=== PATIENT | female | born 1980 | race Caucasian/White ===

== ENCOUNTER 2016-04-12 16:58 | Emergency (ER) | payer OTHER ==
[2016-04-12 17:20] VITALS: TEMP 98; BMI 32.9
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
[2016-04-12] MEDS ORDERED: ONDANSETRON *ODT* 4 MG TABLET SL ONE (18:13)
[2016-04-12] MEDS ORDERED: KETOROLAC TROMETHAMINE 60 MG/2 ML VIAL IM ONE (18:13)
[2016-04-12] MEDS ORDERED: ONDANSETRON *ODT* 4 MG TABLET ONE (18:22)
[2016-04-12] MEDS ORDERED: KETOROLAC TROMETHAMINE 60 MG/2 ML VIAL ONE (18:22)
[2016-04-12] MEDS ORDERED: OXYCODONE/APAP 5/325MG COMBO TABLET PO ONE (18:50)
[2016-04-12 18:56] VITALS: BP 148/78; PULSE 88
== END 2016-04-12 18:56 | disposition home or self-care (01) ==
LOC: JER 16:58
PROC: 3E0233Z Introduction of Anti-inflammatory into Muscle, Percutaneous Approach (ICD-10-PCS; principal; 2016-04-12)
PROC: 2W3MXYZ Immobilization of Left Lower Extremity using Other Device (ICD-10-PCS; 2016-04-12)
DX: F07.81 Postconcussional syndrome (principal); G44.309 Post-traumatic headache, unspecified, not intractable; S83.8X2A Sprain of other specified parts of left knee, initial encounter; Y04.2XXA Assault by strike against or bumped into by another person, initial encounter; Y93.89 Activity, other specified; Y92.89 Other specified places as the place of occurrence of the external cause; Y07.9 Unspecified perpetrator of maltreatment and neglect
CPT/HCPCS: 99282-25

== ENCOUNTER 2017-03-08 13:43 | Emergency (ER) | payer OTHER ==
[2017-03-08 14:28] VITALS: BP 123/57; PULSE 87; TEMP 98.6; BMI 34.6
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
[2017-03-08 18:31] LABS: HEMATOCRIT 34.7 % (32.4-45.2); HEMOGLOBIN 9.9 GM/dL (10.7-15.3); MCH 33.2 pg (25.7-33.7); MCHC 28.5 g/dl (32.0-36.0); MEAN CELL VOLUME 116.8 fl (80-96); MEAN PLT VOLUME 9.7 fl (7.5-11.1); PLATELET COUNT 559 K/MM3 (134-434); RBC 2.97 M/mm3 (3.60-5.2); RDW 17.2 % (11.6-15.6); WHITE BLOOD COUNT 25.4 K/mm3 (4.0-10.0)
[2017-03-08 19:17] LABS: ADD RBC MORPHOLOGY YES
[2017-03-08] MEDS ORDERED: SODIUM CHLORIDE 1,000 ML IV STA (19:37)
[2017-03-08] MEDS ORDERED: KETOROLAC TROMETHAMINE 30 MG/1 ML VIAL IVPUSH ONE (19:38)
[2017-03-08 19:41] LABS: BASO % 0.4 % (0-2.0); EOS % 0.7 % (0-4.5); HEMATOCRIT 43.4 % (32.4-45.2); HEMOGLOBIN 14.5 GM/dL (10.7-15.3); LYMPH % 14.1 % (8-40); MCH 28.8 pg (25.7-33.7); MCHC 33.3 g/dl (32.0-36.0); MEAN CELL VOLUME 86.3 fl (80-96); MEAN PLT VOLUME 7.1 fl (7.5-11.1); MONO % 6.7 % (3.8-10.2); NEUT % 78.1 % (42.8-82.8); PLATELET COUNT 364 K/MM3 (134-434); RBC 5.03 M/mm3 (3.60-5.2); RDW 14.3 % (11.6-15.6); WHITE BLOOD COUNT 8.8 K/mm3 (4.0-10.0)
[2017-03-08] MEDS ORDERED: KETOROLAC TROMETHAMINE 30 MG/1 ML VIAL ONE (19:44)
[2017-03-08 19:59] LABS: ALK PHOS 73 U/L (45-117); ANION GAP 7 (8-16); BILIRUBIN,TOTAL 0.9 mg/dL (0.2-1.0); BLOOD UREA NITROGEN 8 mg/dL (7-18); CALCIUM 8.1 mg/dL (8.5-10.1); CHLORIDE 105 mmol/L (98-107); CO2 24 mmol/L (21-32); CREATININE 0.5 mg/dL (0.55-1.02); GLUCOSE,RANDOM 94 mg/dL (74-106); POTASSIUM 3.9 mmol/L (3.5-5.1); SGOT/AST 20 U/L (15-37); SGPT/ALT 45 U/L (12-78); SODIUM 136 mmol/L (136-145); TOT PROT 7.4 g/dl (6.4-8.2)
[2017-03-08 20:43] LABS: ANISOCYTOSIS 2+; MACROCYTOSIS 0; PLATELET ESTIMATE INCREASED
[2017-03-08 21:37] LABS: URINE APPEARANCE CLEAR; URINE BILIRUBIN NEGATIVE (NEGATIVE); URINE BLOOD NEGATIVE (NEGATIVE); URINE COLOR LTYELLOW; URINE GLUCOSE (UA) NEGATIVE (NEGATIVE); URINE KETONE TRACE (NEGATIVE); URINE LEUK ESTERASE NEGATIVE (NEGATIVE); URINE NITRITE NEGATIVE (NEGATIVE); URINE PROTEIN NEGATIVE (NEGATIVE); URINE UROBILINOGEN NEGATIVE mg/dL (0.2-1.0)
== END 2017-03-08 23:53 | disposition home or self-care (01) ==
LOC: JER 13:43
PROC: 3E0337Z Introduction of Electrolytic and Water Balance Substance into Peripheral Vein, Percutaneous Approach (ICD-10-PCS; principal; 2017-03-08)
PROC: 3E0333Z Introduction of Anti-inflammatory into Peripheral Vein, Percutaneous Approach (ICD-10-PCS; 2017-03-08)
DX: N20.0 Calculus of kidney (principal); Z87.442 Personal history of urinary calculi; Z87.891 Personal history of nicotine dependence
CPT/HCPCS: 36415; 74176-TC; 80053; 81003; 84703; 85025; 99284-25

== ENCOUNTER 2017-05-31 05:02 | Inpatient (IN) | payer OTHER ==
[2017-05-28 09:52] VITALS: BMI 31.4
[2017-05-31] MEDS ORDERED: DEXAMETHASONE SOD PHOSPHATE/PF 10 MG/ML SDV ONE (07:15)
[2017-05-31] MEDS ORDERED: ROPIVACAINE HCL 0.5% 30ML VIAL ONE (07:15)
[2017-05-31] MEDS ORDERED: MIDAZOLAM HCL 2 MG/2 ML SINGLE DOSE VIAL ONE ×3 (07:20→08:10)
[2017-05-31] MEDS ORDERED: VASOPRESSIN 20 UNITS/ML VIAL IV ONE (07:27)
[2017-05-31] MEDS ORDERED: fentaNYL CITRATE 250 MCG/5 ML VIAL ONE (08:11)
[2017-05-31] MEDS ORDERED: HYDROmorphone HCL CARPU-JECT 2 MG/1 ML DISP.SYRIN IVPB PRN ×2 (08:13→09:19)
[2017-05-31] MEDS ORDERED: IBUPROFEN 800 MG/8 ML IJ IVPB PRN (08:13)
[2017-05-31] MEDS ORDERED: PROPOFOL 20 ML ONE (08:15)
[2017-05-31] MEDS ORDERED: ROCURONIUM BROMIDE 50 MG/5 ML VIAL ONE ×2 (08:15→09:01)
--- NOTE | 2017-05-31 08:19 | HP ---
History & Physical Update - History History: No Change - Physical Physical: No Change - Assessment Assessment: No Change - Plan Plan: No Change (No change from on 05/26/17)
[2017-05-31] MEDS ORDERED: ceFAZolin SODIUM 1 GM VIAL IVPB ONE (08:20)
[2017-05-31] MEDS ORDERED: GLYCOPYRROLATE 0.2 MG/1 ML VIAL ONE (09:23)
[2017-05-31] MEDS ORDERED: NEOSTIGMINE METHYLSULFATE 0.5 MG/ML - 10 ML MDV ONE (09:23)
[2017-05-31] MEDS ORDERED: KETOROLAC TROMETHAMINE 30 MG/1 ML VIAL ONE (09:24)
[2017-05-31] MEDS ORDERED: LIDOCAINE HCL 2% JELLY (5 ML/TUBE) ONE (09:24)
[2017-05-31] MEDS ORDERED: LIDOCAINE HCL/PF 2% SDV 5ML VIAL ONE (09:24)
[2017-05-31] MEDS ORDERED: DEXAMETHASONE SOD PHOSPHATE 4 MG/1 ML VIAL ONE (09:24)
[2017-05-31] MEDS ORDERED: ONDANSETRON 4 MG/2 ML VIAL IVPUSH PRN ×2 (09:58)
[2017-05-31] MEDS ORDERED: PROMETHAZINE HCL 25 MG/1 ML VIAL IVPB PRN (09:58)
[2017-05-31] MEDS ORDERED: DEXAMETHASONE SOD PHOSPHATE 4 MG/1 ML VIAL IVPUSH PRN (09:58)
[2017-05-31] MEDS: HYDROmorphone *PCA* 10MG/50ML DISP.SYRIN PCA SCH ×2 (11:00→21:23)
--- NOTE | 2017-05-31 11:47 | OP ---
DATE OF OPERATION: 05/31/2017 PREOPERATIVE DIAGNOSIS: Leiomyomatous uterus, history of recurrent abortions, menorrhagia. OPERATION: Abdominal myomectomy. POSTOPERATIVE DIAGNOSIS: Leiomyomatous uterus, history of recurrent abortions, menorrhagia. SURGEON: Kaelyn Hutton MD AUTO HAULER: ANGIE Paredes ANESTHESIA: General. ANESTHESIOLOGIST: Dr. Chen Briceño MD FINDINGS: Three fibroids removed. Large one about 5-6 cm in size. The other two 1 cm and 3 cm. DESCRIPTION OF PROCEDURE: The patient was taken to the operating room and placed in supine position, prepped and draped in the usual sterile fashion. A time-out was performed in accordance with hospital regulations. Pfannenstiel skin incision was made with a scalpel. Cautery was then used to open layers of the abdominal wall to the level of the fascia. The fascia was cut in the midline. Cautery was then used to open the fascia in smiling fashion. Marcus was then used to bluntly and sharply dissect the rectus muscle off the fascia. Muscles split in the midline. Peritoneal cavity was then entered and carried upward and downward. Bowel was packed out of the operative field. The uterus was exteriorized. Tourniquet was placed in the space of the broad ligament. A large 5- to 6-cm pedunculated myoma was palpated in the fundus as well as a 3-cm myoma in the posterior of the uterus and another 1-cm fibroid anteriorly. Pitressin was infiltrated into location of the fibroids. Cautery was then used to open the posterior fibroid in a transverse manner. Myoma was then ennucleated out using sharp and blunt technique. Incisions was closed in layers. The muscle was closed in continuous and locking 0 Vicryl suture and imbricating stitch on the serosa of the posterior aspect of the uterus. Attention was then drawn to the fundus where the large 5- to 6-cm myoma was palpated. Cautery was then used to make a transverse incision from left to right side on the fundus. Cautery was then used to go through the layers to the level of the myoma. The myoma was then enucleated out using blunt and sharp technique. Endometrium was not entered and was seen bulging. Myoma was sent to Pathology. Palpation revealed another anterior 1-cm myoma, which was removed with cautery in blunt and sharp technique and enucleated out. The fundal incision was then closed in layers continuous and locking with 0 Vicryl suture. A 2-0 V-Lock suture was then used to close the serosa of the uterus. Hemostasis was established. EBL was 50 mL. All bleeding was found to be hemostatic. Interceed was then used on the uterus, and the uterus was then interiorized after tourniquet had been removed. Peritoneum was then closed after abdominal plate done and all count was correct. The fascia was closed in 2 parts continuous using 0 Vicryl suture. Subcutaneous was closed in interrupted 2-0 Vicryl, and the skin was then closed using 3-0 Vicryl in subcuticular fashion. The wound was washed and dressed. The patient tolerated the procedure well and taken to the recovery room in stable condition. EBL 50 mL. Pad count correct. Rocio DOS [id number]
[2017-05-31] MEDS: CEFAZOLIN 1 GM/D5W 1 GM/50 ML BAG IVPB SCH ×2 (13:49→17:18)
[2017-05-31] MEDS: LACTATED RINGERS SOLUTION 1,000 ML IV SCH (16:37)
[2017-05-31 18:43] LABS: HEMATOCRIT 41.5 % (32.4-45.2); HEMOGLOBIN 13.8 GM/dL (10.7-15.3); MCH 29.1 pg (25.7-33.7); MCHC 33.3 g/dl (32.0-36.0); MEAN CELL VOLUME 87.2 fl (80-96); MEAN PLT VOLUME 7.7 fl (7.5-11.1); PLATELET COUNT 386 K/MM3 (134-434); RBC 4.76 M/mm3 (3.60-5.2); RDW 14.8 % (11.6-15.6); WHITE BLOOD COUNT 16.5 K/mm3 (4.0-10.0)
[2017-05-31 21:43] LABS: PLATELET ESTIMATE ADEQUATE
[2017-06-01] MEDS: SIMETHICONE 80 MG TAB.CHEW (FP) PO PRN ×3 (01:35→16:01)
[2017-06-01] MEDS: LACTATED RINGERS SOLUTION 1,000 ML IV SCH (01:41)
[2017-06-01] MEDS ORDERED: CEFAZOLIN 1 GM/D5W 1 GM/50 ML BAG IVPB SCH (02:00)
[2017-06-01] MEDS ORDERED: oxyCODONE HCL 5 MG TABLET PO PRN ×2 (08:13)
--- NOTE | 2017-06-01 08:21 | PN ---
Progress Note (short form) - Note Progress Note: Post op day#1.S/P Myomectomy under GA with bilateral TAP block uneventful.Patient stable and c/o pain score of 6-7/10 on movement.So will continue MANAGER DENTAL today and also spoke to RN to give patient Caldolor.Will f/u tomorrow.
[2017-06-01 08:35] LABS: BASO % 0.7 % (0-2.0); HEMATOCRIT 36.9 % (32.4-45.2); HEMOGLOBIN 12.4 GM/dL (10.7-15.3); LYMPH % 11.6 % (8-40); MCH 29.6 pg (25.7-33.7); MCHC 33.7 g/dl (32.0-36.0); MEAN CELL VOLUME 87.9 fl (80-96); MEAN PLT VOLUME 7.8 fl (7.5-11.1); MONO % 9.5 % (3.8-10.2); NEUT % 78.2 % (42.8-82.8); PLATELET COUNT 361 K/MM3 (134-434); RDW 14.9 % (11.6-15.6)
[2017-06-01 09:05] LABS: ANION GAP 7 (8-16); BLOOD UREA NITROGEN 6 mg/dL (7-18); CALCIUM 8.6 mg/dL (8.5-10.1); CHLORIDE 106 mmol/L (98-107); CO2 25 mmol/L (21-32); CREATININE 0.4 mg/dL (0.55-1.02); GLUCOSE,RANDOM 109 mg/dL (74-106); POTASSIUM 4.4 mmol/L (3.5-5.1); SODIUM 138 mmol/L (136-145)
[2017-06-01] MEDS: ENOXAPARIN NA (PORCINE) 40 MG/0.4 ML DISP.SYRIN SQ SCH (10:30)
[2017-06-01] MEDS ORDERED: HYDROmorphone HCL 2 MG TABLET PO PRN (12:44)
--- NOTE | 2017-06-01 12:50 | PN ---
Progress Note, Physician Chief Complaint: Pt c/o pain 9/10, improving slightly with Dilaudid SPRIGGER, states oxycodone not helping with pain. Slight VB. Unable to sleep overnight. c/o abdominal pain/ incisional pain. has not yet voided. +flatus - Current Medication List Current Medications: Active Medications Dexamethasone Sodium Phosphate (Decadron Injection -) 4 mg IVPUSH ONCE PRN PRN Reason: NAUSEA AND/OR VOMITING Diphenhydramine HCl (Benadryl Injection -) 12.5 mg IVPUSH ONCE PRN PRN Reason: FOR ITCHING Enoxaparin Sodium (Lovenox -) 40 mg SQ DAILY [facility] Last Admin: 06/01/17 10:30 Dose: 40 mg Fentanyl (Sublimaze Injection -) 50 mcg IVPUSH [id number] PRN PRN Reason: PAIN-PACU ORDER X 4 DOSES ONLY Last Admin: 05/31/17 10:15 Dose: 50 mcg Hydromorphone HCl (Dilaudid -) 4 mg PO Q4H PRN PRN Reason: PAIN LEVEL 6-10 Hydromorphone HCl (Dilaudid -) 2 mg PO Q4HWA PRN PRN Reason: PAIN LEVEL 1-5 Lactated Ringer's (Lactated Ringers Solution) 1,000 mls @ 125 mls/hr IV ASDIR [facility] Last Admin: 06/01/17 01:41 Dose: 125 mls/hr Ibuprofen (Caldolor Injection -) 800 mg IVPB Q8H PRN PRN Reason: FEVER Last Admin: 06/01/17 01:39 Dose: 800 mg Ondansetron HCl (Zofran Injection) 4 mg IVPUSH Q4H PRN PRN Reason: NAUSEA AND/OR VOMITING Promethazine HCl (Phenergan Injection -) 12.5 mg IVPB Q6H PRN PRN Reason: NAUSEA AND/OR VOMITING Simethicone (Mylicon -) 80 mg PO Q4H PRN PRN Reason: gas Last Admin: 06/01/17 11:47 Dose: 80 mg - Objective Vital Signs: Vital Signs Temperature 98.9 F 06/01/17 10:00 Pulse Rate 74 06/01/17 10:00 Respiratory Rate 20 06/01/17 10:00 Blood Pressure 110/58 06/01/17 10:00 O2 Sat by Pulse Oximetry (%) 99 05/31/17 21:46 Constitutional: Yes: Well Nourished Respiratory: Yes: Regular Gastrointestinal: Yes: Soft, Tenderness (appropriate post surgical tenderness) Genitourinary: Yes: Vaginal Bleeding (scant). No: Brown Present Extremities: Yes: WNL Edema: No Wound/Incision: Yes: Dressing Dry and Intact Neurological: Yes: Alert, Oriented Psychiatric: Yes: Oriented Labs: CBC, BMP 06/01/17 07:31 06/01/17 07:31 Problem List - Problems (1) S/P myomectomy Code(s): Z98.890 - OTHER SPECIFIED POSTPROCEDURAL STATES (2) History of recurrent miscarriages Code(s): N96 - RECURRENT LOSS Assessment/Plan 36 y/o POD#1 s/p abdominal myomectomy AFVSS +flatus, no void yet, await void today regular diet PO pain meds (will switch to Dilaudid from oxycodone per pt request) OOB routine post op care
[2017-06-01] MEDS ORDERED: PCA PUMP KEY 1 EACH EACH ONE ×2 (13:46→13:49)
--- NOTE | 2017-06-01 15:35 | PATH ---
Surgical Pathology Report Patient Name: ILENE ROBLEDO [facility]. Rec. 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 Specimen(s) Received FIBROIDS Clinical History Leiomyomatous uterus Final Diagnosis UTERUS, ABDOMINAL MYOMECTOMY: LEIOMYOMATA, 81 GRAM AGGREGATE WEIGHT. Electronically Signed Carlos Alberto Mabry M.D. Gross Description Received in formalin labeled "fibroids," is an 81 g aggregate of 3 hoyt, rubbery nodules ranging from 1.6-6.5 cm in greatest dimension, consistent with fibroids. Sectioning reveals hoyt, firm to rubbery parenchyma with whorled architecture. No areas of hemorrhage or necrosis are identified. Regulatory Affairs Associate sections are submitted in 5 cassettes as follows: 1-smallest fibroid; 2-medium fibroid; 3-5-largest fibroid. /05/31/2017 saudi/05/31/2017
[2017-06-01] MEDS: HYDROmorphone *PCA* 10MG/50ML DISP.SYRIN PCA SCH (15:50)
[2017-06-01] MEDS ORDERED: HYDROmorphone HCL 2 MG TABLET ONE ×2 (15:53→21:56)
[2017-06-01] MEDS ORDERED: KETOROLAC TROMETHAMINE 30 MG/1 ML VIAL IM PRN (19:02)
[2017-06-02] MEDS ORDERED: HYDROmorphone HCL 2 MG TABLET ONE ×2 (02:22→06:42)
[2017-06-02] MEDS ORDERED: IBUPROFEN 600 MG TABLET (FP) PO PRN (08:32)
[2017-06-02 08:33] VITALS: BP 121/70; PULSE 78; TEMP 98.1
--- NOTE | 2017-06-02 08:36 | PN ---
Progress Note (short form) - Note Progress Note: Pain follow up Patient is taking orals. No N/V A/P Discontinue the HYDROMETEOROLOGIST. patient can take oral meds. Katlin Chan MD.
[2017-06-02] MEDS: ENOXAPARIN NA (PORCINE) 40 MG/0.4 ML DISP.SYRIN SQ SCH (09:27)
[2017-06-02] MEDS ORDERED: HYDROmorphone HCL 2 MG TABLET PO PRN ×2 (10:39→10:43)
== END 2017-06-02 14:40 | disposition home or self-care (01) | DRG 743 ==
LOC: JSAMEDAYSX 05:02 → EDSTATUS 08:00 → J3W 13:28
PROVIDERS: ADMIT Obstetrics & Gynecology; ATTEND Obstetrics & Gynecology
PROC: 0UB90ZZ Excision of Uterus, Open Approach (ICD-10-PCS; principal; 2017-05-31 08:00)
DX: D25.9 Leiomyoma of uterus, unspecified (principal); N92.0 Excessive and frequent menstruation with regular cycle
CPT/HCPCS: 36415; 80048; 84703; 85025; 88305-TC; 94760

== ENCOUNTER 2017-11-09 13:23 | Emergency (ER) | payer OTHER ==
[2017-11-09 13:36] VITALS: BP 122/80; PULSE 84; TEMP 98; BMI 31.6
--- NOTE | 2017-11-09 15:07 | PDOC ---
History of Present Illness - General Chief Complaint: Injury Stated Complaint: FALL, INJURY HIP AND KNEE Time Seen by Provider: 11/09/17 13:59 - History of Present Illness Initial Comments: 37-year-old female without comorbidities presents for evaluation of left knee pain and left-sided hip pain after a fall today. She had a prior left knee ACL reconstruction in the past. 11/09/17 15:03 Past History - Past Medical History Allergies/Adverse Reactions: Allergies Allergy/AdvReac Type Severity Reaction Status Date / Time chlorhexidine Allergy Intermediate Hives Verified 11/09/17 13:36 Home Medications: Ambulatory Orders Cyclobenzaprine HCl [Flexeril 10 mg] 10 mg PO HS PRN #10 tablet 11/09/17 Ibuprofen [Motrin -] 600 mg PO TID #30 tablet 11/09/17 Anemia: No Asthma: No Cancer: No Cardiac Disorders: No CVA: No COPD: No CHF: No Dementia: No Diabetes: No Dialysis: No GI Disorders: Yes (h/o acid reflux) Disorders: Yes (h/o kidney stones) HTN: No Hypercholesterolemia: No Kidney Stones: Yes (hx of rt kidney stent) Liver Disease: No Seizures: No Thyroid Disease: No - Surgical History Abdominal Surgery: Yes Appendectomy: No Cardiac Surgery: No Cholecystectomy: Yes (2007) Lung Surgery: No Neurologic Surgery: No Orthopedic Surgery: Yes (acl repair left knee) - Reproductive History Spontaneous : 0 - Immunization History Td Vaccination: Yes Immunization Up to Date: Yes - Suicide/Smoking/Psychosocial Hx Smoking Status: Yes Smoking History: Former smoker Years of Tobacco Use: 0 Have you smoked in the past 12 months: No Number of Cigarettes Smoked Daily: 1 If you are a former smoker, when did you quit?: 2weeks Cigars Per Day: 0 Information on smoking cessation initiated: No 'Breaking Loose' booklet given: 03/15/15 Hx Alcohol Use: Yes (occas) Drug/Substance Use Hx: No Substance Use Type: Alcohol Hx Substance Use Treatment: No Review of Systems - Review of Systems Musculoskeletal: Yes: See HPI, Back Pain, Joint Pain All Other Systems: Reviewed and Negative *Physical Exam - Vital Signs Last Vital Signs Temp Pulse Resp BP Pulse Ox 98 F 84 18 122/80 98 11/09/17 13:32 11/09/17 13:32 11/09/17 13:32 11/09/17 13:32 11/09/17 13:32 - Physical Exam Comments: Left knee skin color and temperature are normal. There is no swelling or appreciable intra-articular effusion. Range of motion is full with some discomfort at terminal flexion. She does have a soft Lockman's test I do not appreciate an endpoint. Her knee is stable to varus and valgus stress and posterior drawer. She has no joint line tenderness. Thigh and calf are soft and nontender she has no gross sensorimotor deficits. She's neurovascular intact. Full hip range of motion and negative straight leg raise test. Lumbar spine skin color and temperature are normal. Range of motion is full with mild discomfort at the left sacroiliac joint. She has no midline tenderness. Tenderness about the left paraspinal musculature. 5 out of 5 strength in bilateral lower extremities without any gross sensorimotor deficits. She's neurovascular intact. 11/09/17 15:05 ED Treatment Course - ADDITIONAL ORDERS Additional order review: Laboratory Results 11/09/17 14:04 Urine HCG, Qual Negative - RADIOLOGY Radiology Studies Ordered: Category Date Time Status KNEE 3 POS-LEFT [RAD] Stat Radiology 11/09/17 14:27 Taken SPINE-LUMBAR SACRAL [RAD] Stat Radiology 11/09/17 14:27 Taken Medical Decision Making - Medical Decision Making Knee immobilizer and crutches weight-bear as tolerated. Follow-up with orthopedic surgery for further evaluation and treatment options. I will send her back to her operating surgeon. 11/09/17 15:07 *DC/Admit/Observation/Transfer Diagnosis at time of Disposition: Knee sprain, Lumbar strain - Discharge Dispostion Disposition: HOME Condition at time of disposition: Stable Decision to Admit order: No - Referrals Referrals: Obed Martin MD [Primary Care Provider] - Obed Parra MD [Staff Physician] - - Patient Instructions Printed Discharge Instructions: Knee Sprain, DI for Knee Sprain, Low Back Pain , DI for Low Back Pain Additional Instructions: Please take the anti-inflammatory 3 times a day with food. Discontinue the medication of bothers her stomach. The muscle relaxer I prescribed he will make you sleepy. Its one tablet before bedtime. Return to the emergency room should symptoms worsen or go unresolved. He may weight-bear as tolerated with use of crutches and a knee immobilizer. Follow-up with orthopedic surgery in 2-3 days for further evaluation and treatment options. - Post Discharge Activity
== END 2017-11-09 15:12 | disposition home or self-care (01) ==
LOC: JERFT 13:23
DX: S86.812A Strain of other muscle(s) and tendon(s) at lower leg level, left leg, initial encounter (principal); S39.012A Strain of muscle, fascia and tendon of lower back, initial encounter; W18.39XA Other fall on same level, initial encounter; Y93.89 Activity, other specified; Y92.89 Other specified places as the place of occurrence of the external cause; Y99.8 Other external cause status
CPT/HCPCS: 72100-TC-FY; 73562-TC-LT-FY; 84703; 99282-25

== ENCOUNTER 2018-03-20 10:26 | Emergency (ER) | payer OTHER ==
[2018-03-20 10:34] VITALS: BP 128/92; PULSE 96; TEMP 98.6; BMI 31.6
--- NOTE | 2018-03-20 12:05 | PDOC ---
History of Present Illness - General Chief Complaint: Sore Throat Stated Complaint: COLD SYMPTOMS Time Seen by Provider: 03/20/18 11:02 History Source: Patient Exam Limitations: Clinical Condition - History of Present Illness Initial Comments: 03/20/18 11:59 Patient with no significant past medical history presented with complaint of 3 day history of nasal congestion, persistent cough, runny nose and a sore throat. Patient will use [id number] medication with no improvement. Patient denies fever, chills, diarrhea, nausea /vomiting or abdominal pain. Patient denies any other symptoms Timing/Duration: other (3 days) Past History - Past Medical History Allergies/Adverse Reactions: Allergies Allergy/AdvReac Type Severity Reaction Status Date / Time chlorhexidine Allergy Intermediate Hives Verified 03/20/18 10:33 Home Medications: Ambulatory Orders Albuterol 2.5/Ipratropium 0.5 [Duoneb -] 1 neb IH Q4H PRN #1 vial.neb. 03/20/18 Benzonatate [Tessalon Pearls -] 100 mg PO TID PRN #21 capsule 03/20/18 Ipratropium [place] 2 spray NS BID PRN #1 spray 03/20/18 Methylprednisolone [Medrol Dose Michael] 4 mg PO ASDIR #21 tablet 03/20/18 Nebulizer and Compressor [Portable Nebulizer System] 1 each MC Q4H PRN #1 each 03/20/18 Anemia: No Asthma: No Cancer: No Cardiac Disorders: No CVA: No COPD: No CHF: No Dementia: No Diabetes: No Dialysis: No GI Disorders: Yes (h/o acid reflux) Disorders: Yes (h/o kidney stones) HTN: No Hypercholesterolemia: No Kidney Stones: Yes (hx of rt kidney stent) Liver Disease: No Seizures: No Thyroid Disease: No - Surgical History Abdominal Surgery: Yes Appendectomy: No Cardiac Surgery: No Cholecystectomy: Yes (2007) Lung Surgery: No Neurologic Surgery: No Orthopedic Surgery: Yes (acl repair left knee) - Reproductive History Spontaneous : 0 - Immunization History Td Vaccination: Yes Immunization Up to Date: Yes - Suicide/Smoking/Psychosocial Hx Smoking Status: Yes Smoking History: Never smoked Years of Tobacco Use: 0 Have you smoked in the past 12 months: No Number of Cigarettes Smoked Daily: 1 If you are a former smoker, when did you quit?: 2weeks Cigars Per Day: 0 'Breaking Loose' booklet given: 03/15/15 Hx Alcohol Use: Yes (occas) Drug/Substance Use Hx: No Substance Use Type: Alcohol Hx Substance Use Treatment: No Review of Systems - Review of Systems Able to Perform ROS?: Yes Is the patient limited [place] proficient: No Constitutional: No: Chills, Fever, Malaise HEENTM: Yes: Symptoms Reported, See HPI, Nose Congestion, Throat Pain. No: Eye Pain, Blurred Vision, Tearing, Recent change in vision, Double Vision, Cataracts , Ear Pain, Ocular Prothesis, Ear Discharge, Nose Pain, Tinnitus, Nose Bleeding , Hearing Loss, Throat Swelling, Mouth Pain, Dental Problems, Difficulty Swallowing, Mouth Swelling, Other Respiratory: Yes: Symptoms reported, See HPI, Cough, Productive cough (clear). No: Orthopnea, Shortness of Breath, SOB with Exertion, SOB at Rest, Stridor, Wheezing, Hemoptysis, Other Cardiac (ROS): No: Symptoms Reported, See HPI, Chest Pain, Edema, Irregular Heart Rate, Lightheadedness, Palpitations, Syncope, Chest Tightness, Other ABD/GI: No: Constipated, Diarrhea, Nausea, Vomiting, Abdominal cramping All Other Systems: Reviewed and Negative *Physical Exam - Vital Signs Last Vital Signs Temp Pulse Resp BP Pulse Ox 98.6 F 96 H 18 128/92 98 03/20/18 10:31 03/20/18 10:31 03/20/18 10:31 03/20/18 10:31 03/20/18 10:31 - Physical Exam Comments: 03/20/18 12:01 GENERAL: Well developed, well nourished. Awake and alert. No acute distress. HEENT: Normocephalic, atraumatic. PERRLA, EOMI. No conjunctival pallor. Sclera are non-icteric. Moist mucous membranes. Oropharynx is clear. NECK: Supple. Full ROM. CARDIOVASCULAR: Regular rate and rhythm. No murmurs, rubs, or gallops. Distal pulses are 2+ and symmetric. PULMONARY: No evidence of respiratory distress. Lungs clear to auscultation bilaterally. No wheezing, rales or rhonchi. ABDOMINAL: Soft. Non-tender. Non-distended. No rebound or guarding. No organomegaly. Normoactive bowel sounds. MUSCULOSKELETAL Normal range of motion at all joints. SKIN: Warm and dry. no cyanosis. Normal capillary refill. No rashes. NEUROLOGICAL: Alert, awake, appropriate. Gait is normal without ataxia. PSYCHIATRIC: Cooperative. Good eye contact. Appropriate mood General Appearance: Yes: Nourished, Appropriately Dressed. No: Apparent Distress Moderate Sedation - Procedure Monitoring Vital Signs: Procedure Monitoring Vital Signs Temperature 98.6 F 03/20/18 10:31 Pulse Rate 96 H 03/20/18 10:31 Respiratory Rate 18 03/20/18 10:31 Blood Pressure 128/92 03/20/18 10:31 O2 Sat by Pulse Oximetry (%) 98 03/20/18 10:31 Medical Decision Making - Medical Decision Making 03/20/18 12:02 Patient with no significant past medical history presented with complaint of 3 day history of nasal congestion, persistent cough, runny nose and a sore throat. Patient will use gkee-qqc-mlwcmji medication with no improvement. Exam unremarkable with no pharyngeal erythema. Lungs clear to auscultation bilateral. Normal cardiovascular exam. Rapid strep and rapid flu test ordered. Symptoms likely viral URI. Patient was discharged home on Medrol pack and Tessalon Perles for cough with nasal spray if negative strep and flu test. 03/20/18 12:16 rapid strep and flu negative. Patient stable for discharge for outpt tx for URI and sinusitis with PCP follow-up *DC/Admit/Observation/Transfer Diagnosis at time of Disposition: Pharyngitis Qualifiers: Pharyngitis/tonsillitis etiology: unspecified etiology Qualified Code(s): J02.9 - Acute pharyngitis, unspecified URI (upper respiratory infection) Qualifiers: URI type: unspecified URI Qualified Code(s): J06.9 - Acute upper respiratory infection, unspecified Sinusitis Qualifiers: Sinusitis location: unspecified location Chronicity: acute Recurrence: non- recurrent Qualified Code(s): J01.90 - Acute sinusitis, unspecified - Discharge Dispostion Disposition: HOME Condition at time of disposition: Stable Decision to Admit order: No - Prescriptions Prescriptions: Albuterol 2.5/Ipratropium 0.5 [Duoneb -] 1 neb IH Q4H PRN #1 vial.neb. PRN Reason: Cough Benzonatate [Tessalon Pearls -] 100 mg PO TID PRN #21 capsule PRN Reason: Cough Ipratropium [place] 2 spray NS BID PRN #1 spray PRN Reason: nasal congestion Methylprednisolone [Medrol Dose Michael] 4 mg PO ASDIR #21 tablet Nebulizer and Compressor [Portable Nebulizer System] 1 each MC Q4H PRN #1 each PRN Reason: Cough - Referrals Referrals: Obed Martin MD [Primary Care Provider] - - Patient Instructions Printed Discharge Instructions: DI for Sinusitis Additional Instructions: your rapid strep and rapid flu was negative. Symptoms likely caused by sinus congestion and cold. Take medication as prescribed. Increase fluid intake. Follow-up PCP as needed. - Post Discharge Activity Forms/Work/School Notes: Back to Work
== END 2018-03-20 12:26 | disposition home or self-care (01) ==
LOC: JERFT 10:26
DX: J06.9 Acute upper respiratory infection, unspecified (principal); J01.90 Acute sinusitis, unspecified; J02.9 Acute pharyngitis, unspecified
CPT/HCPCS: 87070; 87804; 87880; 99281-25

== ENCOUNTER 2018-03-24 18:51 | Emergency (ER) | payer OTHER ==
[2018-03-24 18:58] VITALS: BP 134/86; PULSE 100; TEMP 98; BMI 31.6
--- NOTE | 2018-03-24 19:41 | PDOC ---
*Physical Exam - Vital Signs Last Vital Signs Temp Pulse Resp BP Pulse Ox 98.0 F 100 H 16 134/86 100 03/24/18 18:55 03/24/18 18:55 03/24/18 18:55 03/24/18 18:55 03/24/18 18:55 ED Treatment Course - LABORATORY CBC & Chemistry Diagram: 03/24/18 20:47 03/24/18 20:47 Medical Decision Making - Medical Decision Making 03/24/18 19:41 Patient seen by the advanced practice provider under my direct supervision. Ancillary testing reviewed as necessary. I agree with plan as outlined by the advanced practice provider. *DC/Admit/Observation/Transfer Diagnosis at time of Disposition: Gastroenteritis - Discharge Dispostion Disposition: HOME Condition at time of disposition: Stable - Referrals Referrals: Obed Martin MD [Primary Care Provider] - 2 Days - Patient Instructions Printed Discharge Instructions: DI for Viral Gastroenteritis -- Adult Additional Instructions: Thank you for choosing [facility]. It was a pleasure taking care of you. Your CT scan showed no acute findings Your labs were normal Likely you have stomach bug Recommend bland food - such as bananas, rice, applesauce, toast, plain yogurt Stay hydrated - drink at least 2L of water daily Take Pepcid if needed for burning sensation in abdomen. Follow-up with PCP in 2-3 days Return to the Emergency Department if your symptoms worsen or persist or have other concerning symptoms. - Post Discharge Activity Forms/Work/School Notes: Back to Work
[2018-03-24] MEDS ORDERED: SODIUM CHLORIDE 1,000 ML IV STA (20:12)
[2018-03-24] MEDS ORDERED: FAMOTIDINE 20 MG/50 ML IVPB 20 MG/50 ML MG IVPB ONE ×2 (20:12→20:58)
[2018-03-24] MEDS ORDERED: MAG HYDROX/AL HYDROX/SIMETH 30 ML UNIT-DOSE CUP PO ONE (20:12)
[2018-03-24] MEDS ORDERED: morphine CARPU-JECT 4 MG/1 ML DISP.SYRIN IVPUSH ONE (20:17)
--- NOTE | 2018-03-24 20:18 | PDOC ---
History of Present Illness - General Chief Complaint: Cold Symptoms Stated Complaint: VIRUS COUGHING/lightheaded/abd pain Time Seen by Provider: 03/24/18 19:39 History Source: Patient Exam Limitations: No Limitations Past History - Past Medical History Allergies/Adverse Reactions: Allergies Allergy/AdvReac Type Severity Reaction Status Date / Time chlorhexidine Allergy Intermediate Hives Verified 03/24/18 18:58 Home Medications: Ambulatory Orders Albuterol 2.5/Ipratropium 0.5 [Duoneb -] 1 neb IH Q4H PRN #1 vial.neb. 03/20/18 Benzonatate [Tessalon Pearls -] 100 mg PO TID PRN #21 capsule 03/20/18 Ipratropium [place] 2 spray NS BID PRN #1 spray 03/20/18 Methylprednisolone [Medrol Dose Michael] 4 mg PO ASDIR #21 tablet 03/20/18 Nebulizer and Compressor [Portable Nebulizer System] 1 each MC Q4H PRN #1 each 03/20/18 Anemia: No Asthma: No Cancer: No Cardiac Disorders: No CVA: No COPD: No CHF: No Dementia: No Diabetes: No Dialysis: No GI Disorders: Yes (h/o acid reflux) Disorders: Yes (h/o kidney stones) HTN: No Hypercholesterolemia: No Kidney Stones: Yes (hx of rt kidney stent) Liver Disease: No Seizures: No Thyroid Disease: No - Surgical History Abdominal Surgery: Yes Appendectomy: No Cardiac Surgery: No Cholecystectomy: Yes (2007) Lung Surgery: No Neurologic Surgery: No Orthopedic Surgery: Yes (acl repair left knee) - Reproductive History Spontaneous : 0 - Immunization History Td Vaccination: Yes Immunization Up to Date: Yes - Suicide/Smoking/Psychosocial Hx Smoking Status: Yes Smoking History: Never smoked Years of Tobacco Use: 0 Have you smoked in the past 12 months: No Number of Cigarettes Smoked Daily: 1 If you are a former smoker, when did you quit?: 2weeks Cigars Per Day: 0 Information on smoking cessation initiated: No 'Breaking Loose' booklet given: 03/15/15 Hx Alcohol Use: No Drug/Substance Use Hx: No Substance Use Type: Alcohol Hx Substance Use Treatment: No *Physical Exam - Vital Signs Last Vital Signs Temp Pulse Resp BP Pulse Ox 98.0 F 100 H 16 134/86 100 03/24/18 18:55 03/24/18 18:55 03/24/18 18:55 03/24/18 18:55 03/24/18 18:55 - Physical Exam General Appearance: No: Apparent Distress HEENT: positive: Pharynx Normal Respiratory/Chest: positive: Lungs Clear, Normal Breath Sounds. negative: Respiratory Distress Cardiovascular: positive: Regular Rhythm, Regular Rate, S1, S2. negative: Murmur Gastrointestinal/Abdominal: positive: Flat, Soft, Tenderness (Along RLQ). negative: Distended, Guarding, Rebound, Mass Musculoskeletal: negative: CVA Tenderness Integumentary: positive: Normal Color Neurologic: positive: Alert, Normal Mood/Affect Moderate Sedation - Procedure Monitoring Vital Signs: Procedure Monitoring Vital Signs Temperature 98.0 F 03/24/18 18:55 Pulse Rate 100 H 03/24/18 18:55 Respiratory Rate 16 03/24/18 18:55 Blood Pressure 134/86 03/24/18 18:55 O2 Sat by Pulse Oximetry (%) 100 03/24/18 18:55 ED Treatment Course - LABORATORY CBC & Chemistry Diagram: 03/24/18 20:47 03/24/18 20:47 Medical Decision Making - Medical Decision Making 37 y/o F with hx of cholecystectomy, fibroidectomy presents with sharp epigastric pain from yesterday after eating 2 steak tacos along with watery diarrhea. Patient was recently seen in ED for URI sxs. Denies fever, sob, cp, n/ v, urinary complaints. Could be gastroenteritis, but will also r/o appendicitis given exquisite TTP along RLQ Plan: Labs, UCG, IVF, Pepcid, Maalox, CT A/P 03/24/18 20:18 Labs reviewed and unremarkable CT A/P was unremarkable with no acute findings Patient feeling better on reassessment Likely gastroenteritis 03/25/18 00:33 *DC/Admit/Observation/Transfer Diagnosis at time of Disposition: Gastroenteritis - Discharge Dispostion Disposition: HOME Condition at time of disposition: Stable Decision to Admit order: No - Referrals Referrals: Obed Martin MD [Primary Care Provider] - 2 Days - Patient Instructions Printed Discharge Instructions: DI for Viral Gastroenteritis -- Adult Additional Instructions: Thank you for choosing [facility]. It was a pleasure taking care of you. Your CT scan showed no acute findings Your labs were normal Likely you have stomach bug Recommend bland food - such as bananas, rice, applesauce, toast, plain yogurt Stay hydrated - drink at least 2L of water daily Take Pepcid if needed for burning sensation in abdomen. Follow-up with PCP in 2-3 days Return to the Emergency Department if your symptoms worsen or persist or have other concerning symptoms. - Post Discharge Activity Forms/Work/School Notes: Back to Work
[2018-03-24] MEDS ORDERED: MAG HYDROX/AL HYDROX/SIMETH 30 ML UNIT-DOSE CUP ONE (20:58)
[2018-03-24 21:12] LABS: BASO % 0.4 % (0-2.0); EOS % 1.2 % (0-4.5); HEMATOCRIT 44.8 % (32.4-45.2); HEMOGLOBIN 15.6 GM/dL (10.7-15.3); LYMPH % 18.1 % (8-40); MCH 30.4 pg (25.7-33.7); MCHC 34.8 g/dl (32.0-36.0); MEAN CELL VOLUME 87.5 fl (80-96); MEAN PLT VOLUME 7.1 fl (7.5-11.1); MONO % 8.7 % (3.8-10.2); NEUT % 71.6 % (42.8-82.8); PLATELET COUNT 507 K/MM3 (134-434); RBC 5.12 M/mm3 (3.60-5.2); RDW 14.2 % (11.6-15.6); WHITE BLOOD COUNT 9.5 K/mm3 (4.0-10.0)
[2018-03-24 22:15] LABS: ALBUMIN 4.3 g/dl (3.4-5.0); ALK PHOS 111 U/L (45-117); ANION GAP 9 MMOL/L (8-16); BILIRUBIN,TOTAL 0.2 mg/dL (0.2-1); BLOOD UREA NITROGEN 13 mg/dL (7-18); CALCIUM 9.4 mg/dL (8.5-10.1); CHLORIDE 104 mmol/L (98-107); CO2 25 mmol/L (21-32); CREATININE 0.6 mg/dL (0.55-1.3); GLUCOSE,RANDOM 106 mg/dL (74-106); POTASSIUM 3.8 mmol/L (3.5-5.1); SGOT/AST 16 U/L (15-37); SGPT/ALT 38 U/L (13-61); SODIUM 137 mmol/L (136-145); TOT PROT 8.1 g/dl (6.4-8.2)
== END 2018-03-25 01:38 | disposition home or self-care (01) ==
LOC: JER 18:51
PROC: 3E033GC Introduction of Other Therapeutic Substance into Peripheral Vein, Percutaneous Approach (ICD-10-PCS; principal; 2018-03-24)
DX: K52.9 Noninfective gastroenteritis and colitis, unspecified (principal); Z87.19 Personal history of other diseases of the digestive system; Z87.442 Personal history of urinary calculi
CPT/HCPCS: 36415; 74177-TC; 80053; 84703; 85025; 99281-25; J7030

== ENCOUNTER 2018-05-11 13:10 | Day surgery (SDC) | payer OTHER ==
[2018-05-09 17:38] VITALS: BMI 33.9
[~2018-05-11 13:10] MED LIST: ceFAZolin SODIUM 1 GM VIAL IVPB ONE
[2018-05-11] MEDS ORDERED: fentaNYL CITRATE 250 MCG/5 ML VIAL ONE (14:27)
[2018-05-11] MEDS ORDERED: PROPOFOL 20 ML ONE (14:28)
[2018-05-11] MEDS ORDERED: SUCCINYLCHOLINE CHLORIDE 200 MG/10 ML VIAL ONE (14:28)
[2018-05-11] MEDS ORDERED: MIDAZOLAM HCL 2 MG/2 ML SINGLE DOSE VIAL ONE (14:28)
--- NOTE | 2018-05-11 14:44 | HP ---
History & Physical Update - History History: No Change - Physical Physical: No Change - Assessment Assessment: No Change - Plan Plan: No Change (Hysteroscopy, excision of uterine mass, D&C)
[2018-05-11] MEDS ORDERED: ceFAZolin SODIUM 1 GM VIAL IVPB ONE (14:54)
[2018-05-11] MEDS ORDERED: oxyCODONE HCL 5 MG TABLET PO PRN (15:36)
[2018-05-11] MEDS ORDERED: ONDANSETRON 4 MG/2 ML VIAL IVPUSH PRN (15:36)
[2018-05-11] MEDS ORDERED: LACTATED RINGERS SOLUTION 1,000 ML IV SCH (15:45)
--- NOTE | 2018-05-11 16:51 | OP ---
Operative Note - Note: Operative Date: 05/11/18 Pre-Operative Diagnosis: Endometrial polyp, irregular menses, postcoital bleeding, menometrorrhagia Operation: Hysteroscopy, D&C, polypectomy Findings: Slightly enlarged uterus, uterine cavity sounded to 8cm No pelvic or adnexal masses Uterine polyps x 3 Post-Operative Diagnosis: Same as Pre-op Surgeon: Kobe Ballard Anesthesiologist/SENSOR TECHNICIAN: Gregor Child Anesthesia: General Specimens Removed: Uterine polyps, endometrial curettings Estimated Blood Loss (mls): 10 Blood Volume Replaced (mls): 0 Fluid Volume Replaced (mls): 600 Operative Report Dictated: Yes
[2018-05-11] MEDS ORDERED: oxyCODONE HCL 5 MG TABLET ONE (17:16)
[2018-05-11 17:38] VITALS: TEMP 99.3
--- NOTE | 2018-05-11 17:40 | OP ---
DATE OF OPERATION: 05/11/2018 PREOPERATIVE DIAGNOSES: Endometrial polyps, irregular menses, postcoital bleeding, menometrorrhagia. POSTOPERATIVE DIAGNOSES: Endometrial polyps, irregular menses, postcoital bleeding, menometrorrhagia. PROCEDURE: Hysteroscopy, polypectomy, dilatation and curettage. SURGEON: Jamie Antonio MD ANESTHESIOLOGIST: Dr. Fuentes ANESTHESIA: General. COMPLICATIONS: None. ESTIMATED BLOOD LOSS: 10 mL. INTRAVENOUS FLUIDS: 600 mL. PATHOLOGY: Uterine polyps and endometrial curettings. FINDINGS: Examination under anesthesia revealed a slightly enlarged anteverted uterus with no pelvic or adnexal masses. Hysteroscopy revealed a slightly enlarged endometrial cavity that was sounded to 8 cm. There were several uterine polyps within the endometrial cavity. After the polyps were removed, the cavity appeared to be within normal limits. Both fallopian tube ostia were visualized and appeared to be within normal limits. PROCEDURE DESCRIPTION: The patient was met preoperatively. Risks, benefits, and alternatives of surgery were discussed in detail. All questions were answered. The risks of infection, bleeding, trauma, perforation, scarring, amenorrhea, infertility, etc., were discussed. Patient was also explained that all surgeries have risks and no guarantees can be provided. We also discussed that further surgery may be required to treat any findings or any complications. The patient verbalized understanding and requested to proceed with the surgery. The patient was brought to the OR. She was placed on the surgical table in the supine position. A general anesthesia was achieved without difficulty. The patient was then placed in a dorsal lithotomy position using adjustable Geovany stirrups. She was examined under anesthesia with the findings as described above. The patient was prepped and draped in the usual sterile fashion. The weighted speculum was introduced inside the vagina with good visualization of the cervix. The cervix was dilated to accommodate size 23-Herrera dilator. A hysteroscope was advanced into the uterine cavity with the findings as described above. A Symphion resectoscope was then used hysteroscopically to resect all of the polyps. The hysteroscope was then removed. A gentle uterine curettage was performed, and all of the tissue was sent to Pathology for evaluation. Once the this was completed, good hemostasis was noted. Sponge, lap, and instrument counts were correct. The patient was returned to supine position. She was then transferred to recovery room in stable condition and awake. JAMIE ANTONIO M.D. [id number]
[2018-05-11 19:28] VITALS: BP 142/81; PULSE 86
--- NOTE | 2018-05-13 12:47 | PATH ---
Surgical Pathology Report Patient Name: ILENE ROBLEDO [facility]. Rec. #: [id number] /Age/Gender: 1980 (Age: 37) / F Account: [id number] Location: [facility] SURGICAL Taken: 05/11/2018 Received: 05/12/2018 Reported: 05/13/2018 Physicians: Kobe Ballard M.D. Specimen(s) Received A: ENDOMETRIAL POLYPS B: ENDOMETRIAL CURETTINGS Clinical History Irregular bleeding, postcoital bleeding, polyp and dysmenorrhea Final Diagnosis A. ENDOMETRIUM, POLYPECTOMY: SECRETORY ENDOMETRIUM WITH STROMAL DECIDUALIZATION AND AREAS CONSISTENT WITH BENIGN ENDOMETRIAL POLYP. NO ENDOMETRIAL HYPERPLASIA OR CARCINOMA IDENTIFIED. ENDOCERVICAL MUCOSA WITH ACUTE AND CHRONIC INFLAMMATION PRESENT. B. ENDOMETRIUM, CURETTING: SECRETORY ENDOMETRIUM WITH STROMAL DECIDUALIZATION AND FOCAL BREAKDOWN. NO ENDOMETRIAL HYPERPLASIA OR CARCINOMA IDENTIFIED. Electronically Signed Carlos Alberto Mabry M.D. Gross Description A. Received in formalin labeled "endometrial polyps," is a 4.0 x 2.6 x 0.3 cm aggregate of hoyt soft tissue fragments. The formalin is filtered and the specimen is entirely submitted in 3 cassettes. B. Received in formalin labeled "endometrial curettings," is a 3.3 x 3.0 x 0.3 cm aggregate of hoyt-brown soft tissue fragments. The formalin is filtered and the specimen is entirely submitted in 2 cassettes. /05/12/2018 [facility]05/12/2018
== END 2018-05-11 19:40 | disposition home or self-care (01) ==
LOC: JASU-SURG 13:10
PROVIDERS: ATTEND Obstetrics & Gynecology
PROC: 0UJD8ZZ Inspection of Uterus and Cervix, Via Natural or Artificial Opening Endoscopic (ICD-10-PCS; 2018-05-11)
PROC: 0UB97ZX Excision of Uterus, Via Natural or Artificial Opening, Diagnostic (ICD-10-PCS; principal; 2018-05-11 14:30)
PROC: 0UDB7ZX Extraction of Endometrium, Via Natural or Artificial Opening, Diagnostic (ICD-10-PCS; 2018-05-11 14:30)
DX: N92.1 Excessive and frequent menstruation with irregular cycle (principal); N84.0 Polyp of corpus uteri; N93.0 Postcoital and contact bleeding
CPT/HCPCS: 36415; 84703; 86850; 86900; 86901; 88305-TC; 94760

== ENCOUNTER 2018-06-25 15:25 | Emergency (ER) | payer OTHER ==
[2018-06-25 15:48] VITALS: TEMP 98.1; BMI 31.4
--- NOTE | 2018-06-25 15:56 | PDOC ---
History of Present Illness <Laly Kendrick - Last Filed: 06/25/18 21:33> - General History Source: Patient Exam Limitations: No Limitations - History of Present Illness Initial Comments: 06/25/18 17:09 37 yo F with a hx of fibroids presents to the emergency department with RLQ pain. Per the patient, she has been having LLQ pain for 3 days that was cramping in nature with radiation to the left flank. Per the patient, she began experiencing RLQ pain this morning that is 10/10, cramping, radiating to the right flank without associative N/V, diarrhea, vaginal bleeding, vaginal discharge, hematochezia, fevers, chills, and back pain. She has had kidney stones in the past, but states this pain does not feel like it. Endorses having BV 2x in the past. Shx: Fibroidectomy Allergies: Chlorhexidine <Esau Castro - Last Filed: 06/25/18 21:50> - General Chief Complaint: Pain Stated Complaint: LOWER ABD PAIN Time Seen by Provider: 06/25/18 15:40 Past History <Laly Kendrick - Last Filed: 06/25/18 21:33> - Past Medical History Anemia: No Asthma: No Cancer: No Cardiac Disorders: No CVA: No COPD: No CHF: No Dementia: No Diabetes: No Dialysis: No GI Disorders: Yes (h/o acid reflux) Disorders: Yes (h/o kidney stones) HTN: No Hypercholesterolemia: No Kidney Stones: Yes (hx of rt kidney stent) Liver Disease: No Seizures: No Thyroid Disease: No - Surgical History Abdominal Surgery: Yes Appendectomy: No Cardiac Surgery: No Cholecystectomy: Yes (2007) Lung Surgery: No Neurologic Surgery: No Orthopedic Surgery: Yes (acl repair left knee) - Reproductive History Spontaneous : 0 - Immunization History Td Vaccination: Yes Immunization Up to Date: Yes - Suicide/Smoking/Psychosocial Hx Smoking Status: Yes Smoking History: Never smoked Years of Tobacco Use: 0 Have you smoked in the past 12 months: Yes Number of Cigarettes Smoked Daily: 0 If you are a former smoker, when did you quit?: 3months Cigars Per Day: 0 'Breaking Loose' booklet given: 03/15/15 Hx Alcohol Use: No Drug/Substance Use Hx: No Substance Use Type: Alcohol Hx Substance Use Treatment: No <Esau Castro - Last Filed: 06/25/18 21:50> - Past Medical History Allergies/Adverse Reactions: Allergies Allergy/AdvReac Type Severity Reaction Status Date / Time chlorhexidine Allergy Intermediate Hives Verified 06/25/18 15:47 Home Medications: Ambulatory Orders Folic Acid - 4 mg PO DAILY 05/09/18 Multivitamin [One-Daily Multi-Vitamin] 1 each PO DAILY 05/09/18 Ibuprofen 600 mg PO QID PRN #28 tablet 06/25/18 Review of Systems - Review of Systems Able to Perform ROS?: Yes Is the patient limited Croatian proficient: No Constitutional: No: Chills, Diaphoresis, Fever, Weakness HEENTM: No: Eye Pain, Recent change in vision, Ear Pain, Nose Pain, Throat Pain , Mouth Pain Respiratory: No: Cough, Shortness of Breath, Hemoptysis Cardiac (ROS): No: Chest Pain, Lightheadedness, Palpitations, Syncope, Chest Tightness ABD/GI: Yes: Abdominal cramping. No: Constipated, Diarrhea, Nausea, Rectal Bleeding, Vomiting, Tarry Stools : Yes: Frequency. No: Burning, Dysuria, Hematuria, Incontinence Musculoskeletal: No: Back Pain, Joint Pain, Neck Pain Integumentary: No: Bruising, Erythema, Rash Neurological: No: Headache, Numbness, Tingling, Tremors, Dizziness Psychiatric: No: Change in Appetite Endocrine: No: Unexplained Weight Gain Hematologic/Lymphatic: No: Anemia <Esau Castro - Last Filed: 06/25/18 21:50> *Physical Exam - Vital Signs Last Vital Signs Temp Pulse Resp BP Pulse Ox 98.1 F 74 18 114/77 98 06/25/18 19:44 06/25/18 19:44 06/25/18 19:44 06/25/18 19:44 06/25/18 19:44 <Laly Kendrick - Last Filed: 06/25/18 21:33> - Vital Signs Last Vital Signs Temp Pulse Resp BP Pulse Ox 98.1 F 73 16 134/78 98 06/25/18 15:44 06/25/18 15:44 06/25/18 15:44 06/25/18 15:44 06/25/18 15:44 - Physical Exam General Appearance: Yes: Nourished, Appropriately Dressed. No: Apparent Distress, Intoxicated HEENT: positive: EOMI, ELIO, Normal Voice, Symmetrical, Pharynx Normal <Esau Castro - Last Filed: 06/25/18 21:50> ED Treatment Course - LABORATORY CBC & Chemistry Diagram: 06/25/18 16:04 06/25/18 16:04 - ADDITIONAL ORDERS Additional order review: Laboratory Results 06/25/18 06/25/18 06/25/18 16:04 16:04 16:04 PT with INR 12.50 INR 1.06 Sodium Potassium Chloride Carbon Dioxide Anion Gap BUN Creatinine Est GFR (CKD-EPI)AfAm Est GFR (CKD-EPI)NonAf Random Glucose Calcium Total Bilirubin AST ALT Alkaline Phosphatase Total Protein Albumin Urine Color Urine Appearance Urine pH Ur Specific [place] Urine Protein Urine Glucose (UA) Urine Ketones Urine Blood Urine Nitrite Urine Bilirubin Urine Urobilinogen Ur Leukocyte Esterase Urine HCG, Qual Negative Blood Type O POSITIVE Antibody Screen Negative 06/25/18 06/25/18 16:04 16:04 PT with INR INR Sodium 138 Potassium 3.9 Chloride 107 Carbon Dioxide 26 Anion Gap 4 L BUN 13 Creatinine 0.5 L Est GFR (CKD-EPI)AfAm 144.31 Est GFR (CKD-EPI)NonAf 124.51 Random Glucose 100 Calcium 9.1 Total Bilirubin 0.2 AST 11 L ALT 36 Alkaline Phosphatase 82 Total Protein 7.0 Albumin 3.7 Urine Color Yellow Urine Appearance Turbid Urine pH 7.0 Ur Specific [place] 1.018 Urine Protein Negative Urine Glucose (UA) Negative Urine Ketones Negative Urine Blood Negative Urine Nitrite Negative Urine Bilirubin Negative Urine Urobilinogen 0.2 Ur Leukocyte Esterase Negative Urine HCG, Qual Blood Type Antibody Screen 06/25/18 16:04 RBC 4.86 MCV 87.2 MCHC 32.6 RDW 13.8 MPV 7.1 L Neutrophils % 50.9 Lymphocytes % 36.5 Monocytes % 10.2 Eosinophils % 1.7 Basophils % 0.7 - Medications Given in the ED: ED Medications Discontinued Medications Generic Name Dose Route Start Last Admin Trade Name Freq PRN Reason Stop Dose Admin Acetaminophen 1,000 mg 06/25/18 16:13 06/25/18 17:04 Ofirmev Injection - IVPB 06/25/18 16:14 1,000 mg ONCE ONE Administration Sodium Chloride 1,000 mls @ 1,000 mls/hr 06/25/18 16:13 06/25/18 17:04 Normal Saline - IV 06/25/18 17:12 1,000 mls/hr ASDIR STA Administration Famotidine/Sodium Chloride 20 mg in 50 mls @ 100 mls/hr 06/25/18 20:41 20:57 Pepcid 20 Mg Premixed Ivpb - IVPB 06/25/18 21:10 100 mls/hr ONCE ONE Administration Morphine Sulfate 2 mg 06/25/18 20:32 06/25/18 20:48 Morphine Injection - IVPUSH 06/25/18 20:33 2 mg ONCE ONE Administration <Laly Kendrick - Last Filed: 06/25/18 21:33> - LABORATORY CBC & Chemistry Diagram: 06/25/18 16:04 06/25/18 16:04 <Esau Castro - Last Filed: 06/25/18 21:50> *DC/Admit/Observation/Transfer - Discharge Dispostion Decision to Admit order: No <Laly Kendrick - Last Filed: 06/25/18 21:33> <Esau Castro - Last Filed: 06/25/18 21:50> Diagnosis at time of Disposition: Fibroid uterus, Renal stones, Abdominal pain - Discharge Dispostion Disposition: HOME Condition at time of disposition: Improved - Prescriptions Prescriptions: Ibuprofen 600 mg PO QID PRN #28 tablet PRN Reason: Pain - Referrals Referrals: Obed Martin MD [Primary Care Provider] - - Patient Instructions - Post Discharge Activity Forms/Work/School Notes: Back to Work
[2018-06-25] MEDS ORDERED: ACETAMINOPHEN 1000 MG/100 ML VIAL (NON FORMULARY) IVPB ONE (16:13)
[2018-06-25] MEDS ORDERED: SODIUM CHLORIDE 1,000 ML IV STA (16:13)
[2018-06-25 16:25] LABS: BASO % 0.7 % (0-2.0); EOS % 1.7 % (0-4.5); HEMATOCRIT 42.3 % (32.4-45.2); HEMOGLOBIN 13.8 GM/dL (10.7-15.3); LYMPH % 36.5 % (8-40); MCH 28.4 pg (25.7-33.7); MCHC 32.6 g/dl (32.0-36.0); MEAN CELL VOLUME 87.2 fl (80-96); MEAN PLT VOLUME 7.1 fl (7.5-11.1); MONO % 10.2 % (3.8-10.2); NEUT % 50.9 % (42.8-82.8); PLATELET COUNT 428 K/MM3 (134-434); RBC 4.86 M/mm3 (3.60-5.2); RDW 13.8 % (11.6-15.6)
[2018-06-25 16:30] LABS: URINE APPEARANCE TURBID; URINE BILIRUBIN NEGATIVE (NEGATIVE); URINE COLOR YELLOW; URINE GLUCOSE (UA) NEGATIVE (NEGATIVE); URINE KETONE NEGATIVE (NEGATIVE); URINE LEUK ESTERASE NEGATIVE (NEGATIVE); URINE NITRITE NEGATIVE (NEGATIVE); URINE PROTEIN NEGATIVE (NEGATIVE); URINE UROBILINOGEN 0.2 mg/dL (0.2-1.0)
[2018-06-25] MEDS ORDERED: ACETAMINOPHEN INJECTION 100 ML IVPB ONE (16:31)
[2018-06-25 16:38] LABS: INR 1.06 (0.83-1.09); PROTHROMBIN TIME (PATIENT) 12.5 SEC (9.7-13.0)
[2018-06-25 16:49] LABS: ALBUMIN 3.7 g/dl (3.4-5.0); BILIRUBIN,TOTAL 0.2 mg/dL (0.2-1); CALCIUM 9.1 mg/dL (8.5-10.1); CREATININE 0.5 mg/dL (0.55-1.3); POTASSIUM 3.9 mmol/L (3.5-5.1)
--- NOTE | 2018-06-25 17:43 | PDOC ---
Documentation entered by Onur Carter SCRIBE, acting as scribe for Shawn Duarte MD. Shawn Duarte MD: This documentation has been prepared by the wily, Onur Carter SCRIBE, under my direction and personally reviewed by me in its entirety. I confirm that the documentation accurately reflects all work, treatment, procedures, and medical decision making performed by me. Attending Attestation - Resident Resident Name: Esau Castro - ED Attending Attestation I have performed the following: I have examined & evaluated the patient, The case was reviewed & discussed with the resident, I agree w/resident's findings & plan, Exceptions are as noted - HPI HPI: 06/25/18 16:23 The patient is a 37 year old female with a significant past medical history of uterine fibroids who presents to the emergency department with right lower quadrant pain for 2 days. She describes her RLQ pain as a 10/10, radiating to her right upper flank . she reports some associated increased urinary frequency with her RUQ pain. The patient states that the pain initially started on the L side of her abdomen 4 days ago but has now migrated towards the R side. The patient reports having kidney stones in the past but states this does not feel like that. LMP was 05/16/18 (usually regular). The patient denies any fever, chills, chest pain, or shortness of breath. She denies any other symptoms or complaints. - Physicial Exam PE: 06/25/18 17:46 Agree with resident exam - Medical Decision Making 06/25/18 17:46 37 F with RLQ pain. Will r/o appy with CT. Also consider UTI/pyelo, though pt has no flank pain. Torsion less likely but will consider TVUS if CT unremarkable - Labs, UA, UPT - CTAP Pt signed out to oncoming attending at 7PM, pending CT result, TVUS, and re- evaluation
--- NOTE | 2018-06-25 19:36 | PDOC ---
*Physical Exam - Vital Signs Last Vital Signs Temp Pulse Resp BP Pulse Ox 98.1 F 73 16 134/78 98 06/25/18 15:44 06/25/18 15:44 06/25/18 15:44 06/25/18 15:44 06/25/18 15:44 ED Treatment Course - LABORATORY CBC & Chemistry Diagram: 06/25/18 16:04 06/25/18 16:04 - ADDITIONAL ORDERS Additional order review: Laboratory Results 06/25/18 06/25/18 06/25/18 16:04 16:04 16:04 PT with INR 12.50 INR 1.06 Sodium Potassium Chloride Carbon Dioxide Anion Gap BUN Creatinine Est GFR (CKD-EPI)AfAm Est GFR (CKD-EPI)NonAf Random Glucose Calcium Total Bilirubin AST ALT Alkaline Phosphatase Total Protein Albumin Urine Color Urine Appearance Urine pH Ur Specific [place] Urine Protein Urine Glucose (UA) Urine Ketones Urine Blood Urine Nitrite Urine Bilirubin Urine Urobilinogen Ur Leukocyte Esterase Urine HCG, Qual Negative Blood Type O POSITIVE Antibody Screen Negative 06/25/18 06/25/18 16:04 16:04 PT with INR INR Sodium 138 Potassium 3.9 Chloride 107 Carbon Dioxide 26 Anion Gap 4 L BUN 13 Creatinine 0.5 L Est GFR (CKD-EPI)AfAm 144.31 Est GFR (CKD-EPI)NonAf 124.51 Random Glucose 100 Calcium 9.1 Total Bilirubin 0.2 AST 11 L ALT 36 Alkaline Phosphatase 82 Total Protein 7.0 Albumin 3.7 Urine Color Yellow Urine Appearance Turbid Urine pH 7.0 Ur Specific [place] 1.018 Urine Protein Negative Urine Glucose (UA) Negative Urine Ketones Negative Urine Blood Negative Urine Nitrite Negative Urine Bilirubin Negative Urine Urobilinogen 0.2 Ur Leukocyte Esterase Negative Urine HCG, Qual Blood Type Antibody Screen 06/25/18 16:04 RBC 4.86 MCV 87.2 MCHC 32.6 RDW 13.8 MPV 7.1 L Neutrophils % 50.9 Lymphocytes % 36.5 Monocytes % 10.2 Eosinophils % 1.7 Basophils % 0.7 - Medications Given in the ED: ED Medications Discontinued Medications Generic Name Dose Route Start Last Admin Trade Name Freq PRN Reason Stop Dose Admin Acetaminophen 1,000 mg 06/25/18 16:13 06/25/18 17:04 Ofirmev Injection - IVPB 06/25/18 16:14 1,000 mg ONCE ONE Administration Sodium Chloride 1,000 mls @ 1,000 mls/hr 06/25/18 16:13 06/25/18 17:04 Normal Saline - IV 06/25/18 17:12 1,000 mls/hr ASDIR STA Administration Medical Decision Making - Medical Decision Making 06/25/18 19:34 I received pt on signout and she is awaiting sono pelvis prior to her discharge. Labs are normlal. Patient Name: ILENE ROBLEDO THIS IS A PRELIMINARY REPORT FROM IMAGING DICER OPERATOR DATE OF SERVICE: 2018-06-25 17:30:31 IMAGES: [id number] EXAM: CT ABDOMEN AND PELVIS WITH IV CONTRAST HISTORY: Right lower quadrant pain TECHNIQUE: Contiguous axial images were obtained utilizing a multislice, multidetector CT scanner. Post-processed reformations were also submitted for review. One or more of the following dose reduction techniques were used: automated exposure control, adjustment of the mA and/or kV according to patient size, use of iterative reconstructive technique. COMPARISON: None available FINDINGS: Lower Chest: Within normal limits. Abdomen: Liver:: Mild hepatic steatosis. Bile Ducts: Within normal limits. Gallbladder:: Within normal limits. Pancreas:: Within normal limits. Spleen:: Within normal limits. Adrenals: Within normal limits. Kidneys: Multiple nonobstructing nephrolithiasis in the mid to lower pole of the left kidney measuring up to 1.3 cm without evidence of hydronephrosis. In addition, there is a 4 mm nonobstructing nephrolithiasis in the mid pole of the right kidney. Stomach:: Within normal limits. Bowel:: No evidence of small bowel obstruction or mass. Mild to moderate degree stool burden throughout the colon compatible with constipation. Normal appendix is identified . Pelvis: Reproductive Organs: Heterogeneous uterus. Bladde: Within normal limits. Vessels: Aorta: Within the normal limits without aneurysm or dissection. Retroperitoneum: Within normal limits. Bones: : No suspicious osseous lesions Pt is awaiting sonogram of her pelvis. 06/25/18 20:39 Pt still complains of RLQ pain. She has no appy on CT scan and she is afebrile and he VSS; she will be given morphine for pain. She has a hx of renal stones and we see stones on the CT scan. We are awaiting on the sono results at this time. If sono results are normal, she will be discharged home. 06/25/18 21:32 Patient Name: ILENE ROBLEDO THIS IS A PRELIMINARY REPORT FROM IMAGING DICER OPERATOR DATE OF SERVICE: 2018-06-25 18:35:27 IMAGES: [id number] EXAM: US PELVIC COMPLETE TA and TV HISTORY: Right lower quadrant pain.. TECHNIQUE: Sonographic imaging of the pelvis was performed. Transabdominal imaging provided an overview of the pelvis while transvaginal imaging added additional information to characterize the uterus, endometrium and ovaries. COMPARISON: None available. FINDINGS: Uterus: CONFIDENTIALITY NOTICE: This information is intended only for the use of the recipient(s) named above. If you are not the intended recipient, or a person responsible for delivering it to the intended recipient, you are hereby notified that any disclosure, copying, distribution or use of any of the information contained in or attached to this transmission is STRICTLY PROHIBITED. If you have received this transmission in error, please immediately notify Imaging Shop Director and destroy the original transmission and its attachments without saving them in any manner [address] [facility] [address] [place] [address] Phone: [phone] [phone]) Fax: Email: [email or web address] Patient Information: : 1980 Order Type: Preliminary Name: VENKAT ODOM Sex: F Study Description: US PELVIC Modality: US Location: [facility] Referring Physician: GENEVA MAYER Orientation: Anteverted. Size: 8.4 x 4.5 x 6.4 cm Mass: There is a 2.3 x 2.2 x 1.6 cm fibroid in the right uterine wall. Endometrium: Normal. The endometrial thickness measures 0.5 cm. Incidental note is made of nabothian cyst. Ovaries: Right Ovary Measurement: 4.9 x 2.6 x 2.5cm Right Ovarian Lesion: None. Left Ovary Measurement: 3.9 x 1.6 x 3.1 cm Left Ovarian Lesion: None. Normal Doppler flow is seen in both ovaries. Free fluid: None IMPRESSION: 1. No evidence of adnexal mass or free fluid. 2. Normal arterial and venous Doppler flow and waveforms is seen in both ovaries. 3. There is a 2.3 x 2.2 x 1.6 cm fibroid in the right uterine wall. 06/26/18 04:48 Pt is stable to go home. *DC/Admit/Observation/Transfer Diagnosis at time of Disposition: Fibroid uterus, Renal stones, Abdominal pain - Discharge Dispostion Disposition: HOME Condition at time of disposition: Improved - Prescriptions Prescriptions: Ibuprofen 600 mg PO QID PRN #28 tablet PRN Reason: Pain - Referrals Referrals: Obed Martin MD [Primary Care Provider] - - Patient Instructions - Post Discharge Activity Forms/Work/School Notes: Back to Work
[2018-06-25 19:45] VITALS: BP 114/77; PULSE 74
[2018-06-25] MEDS ORDERED: morphine CARPU-JECT 2 MG/1 ML DISP.SYRIN IVPUSH ONE (20:32)
[2018-06-25] MEDS ORDERED: morphine SULFATE 4 MG/ML VIAL ONE (20:34)
[2018-06-25] MEDS ORDERED: FAMOTIDINE 20 MG/50 ML IVPB 20 MG/50 ML MG IVPB ONE ×2 (20:41→20:51)
== END 2018-06-25 21:37 | disposition home or self-care (01) ==
LOC: JER 15:25
PROC: 3E033NZ Introduction of Analgesics, Hypnotics, Sedatives into Peripheral Vein, Percutaneous Approach (ICD-10-PCS; principal; 2018-06-25)
PROC: 3E0337Z Introduction of Electrolytic and Water Balance Substance into Peripheral Vein, Percutaneous Approach (ICD-10-PCS; 2018-06-25)
PROC: 3E033GC Introduction of Other Therapeutic Substance into Peripheral Vein, Percutaneous Approach (ICD-10-PCS; 2018-06-25)
DX: D25.9 Leiomyoma of uterus, unspecified (principal); N20.0 Calculus of kidney; Z87.891 Personal history of nicotine dependence
CPT/HCPCS: 36415; 74177-TC; 76830-TC; 80053; 81003; 84703; 85025; 85610; 86850; 86900; 86901; 87086; 87491; 87591; 87661; 99283-25; J0131; J7030

== ENCOUNTER → 2018-10-14 | Day surgery (SDC) | payer OTHER | END | disposition home or self-care (01) | LOC: JASU-SURG 09:51 | PROVIDERS: ATTEND Obstetrics & Gynecology | PROC: BU081ZZ Plain Radiography of Uterus and Fallopian Tubes using Low Osmolar Contrast (ICD-10-PCS; principal; 2018-10-14) | DX: Z31.41 Encounter for fertility testing (principal) | CPT/HCPCS: 58340; 74740-TC-FY; 76000-TC-FY; 84703 ==

== ENCOUNTER 2020-10-27 18:38 | Emergency (ER) | payer OTHER ==
[2020-10-27 18:58] VITALS: BP 136/83; PULSE 91; TEMP 98.3; BMI 34.1
[2020-10-27] MEDS ORDERED: KETOROLAC TROMETHAMINE 30 MG/1 ML VIAL IM ONE (20:24)
[2020-10-27] MEDS ORDERED: DEXAMETHASONE SOD PHOSPHATE 10 MG/1 ML VIAL IM ONE (20:24)
[2020-10-27] MEDS ORDERED: DEXAMETHASONE SOD PHOSPHATE 10 MG/1 ML VIAL ONE (20:42)
[2020-10-27] MEDS ORDERED: KETOROLAC TROMETHAMINE 30 MG/1 ML VIAL ONE (20:42)
== END 2020-10-27 21:47 | disposition home or self-care (01) ==
LOC: JERFT 18:38
PROC: 3E023GC Introduction of Other Therapeutic Substance into Muscle, Percutaneous Approach (ICD-10-PCS; principal; 2020-10-27)
DX: M77.31 Calcaneal spur, right foot (principal); M77.32 Calcaneal spur, left foot
CPT/HCPCS: 73630-TC-LT; 73630-TC-RT-FY; 99284-25; J1100

== ENCOUNTER 2021-04-08 15:05 | Emergency (ER) | payer OTHER ==
[2021-04-08 15:38] VITALS: BP 116/69; PULSE 78; TEMP 98; BMI 34.9
== END 2021-04-08 16:09 | disposition home or self-care (01) ==
LOC: JER 15:05
DX: K08.89 Other specified disorders of teeth and supporting structures (principal)
CPT/HCPCS: 99281-25

== ENCOUNTER 2021-06-12 19:49 | Inpatient (IN) | payer OTHER ==
[2021-06-12] MEDS ORDERED: SODIUM CHLORIDE 1,000 ML IV STA (20:07)
[2021-06-12] MEDS ORDERED: PHENAZOPYRIDINE HCL 100 MG TABLET (FP) PO ONE (20:13)
[2021-06-12] MEDS ORDERED: ACETAMINOPHEN 1000 MG/100 ML BAG IVPB ONE (20:13)
[2021-06-12] MEDS ORDERED: PHENAZOPYRIDINE HCL 100 MG TABLET (FP) ONE (20:20)
[2021-06-12] MEDS ORDERED: ACETAMINOPHEN INJECTION 100 ML IVPB ONE (20:20)
[2021-06-12 20:54] LABS: BASO % 0.6 % (0-2.0); EOS % 1.3 % (0-4.5); HEMATOCRIT 40.6 % (32.4-45.2); LYMPH % 25.1 % (8-40); MCH 29.2 pg (25.7-33.7); MCHC 34.5 g/dl (32.0-36.0); MEAN CELL VOLUME 84.6 fl (80-96); MEAN PLT VOLUME 6.9 fl (7.5-11.1); MONO % 7.4 % (3.8-10.2); NEUT % 65.6 % (42.8-82.8); PLATELET COUNT 392 10^3/uL (134-434); RBC 4.79 M/mm3 (3.60-5.2); RDW 14.5 % (11.6-15.6); WHITE BLOOD COUNT 9.6 K/mm3 (4.0-10.0)
[2021-06-12 21:07] LABS: ALBUMIN 4.1 g/dl (3.4-5.0); BLOOD UREA NITROGEN 12.5 mg/dL (7-18); CALCIUM 9.2 mg/dL (8.5-10.1)
[2021-06-12 21:10] LABS: CREATININE 0.8 mg/dL (0.55-1.3)
[2021-06-12 21:11] LABS: BILIRUBIN,TOTAL 0.2 mg/dL (0.2-1)
[2021-06-12 21:12] LABS: TOT PROT 7.6 g/dl (6.4-8.2)
[2021-06-12 21:48] LABS: EPI CELLS >36 /uL (0-25.1); HYALINE CASTS 0 /uL (0-3.1); URINE APPEARANCE CLEAR; URINE BACTERIA 75 /uL (0-1359); URINE BILIRUBIN NEGATIVE (NEGATIVE); URINE COLOR YELLOW; URINE GLUCOSE (UA) NEGATIVE (NEGATIVE); URINE KETONE NEGATIVE (NEGATIVE); URINE LEUK ESTERASE NEGATIVE (NEGATIVE); URINE NITRITE NEGATIVE (NEGATIVE); URINE PROTEIN NEGATIVE (NEGATIVE); URINE RBC 223 /uL (0-23.9); URINE UROBILINOGEN 0.2 mg/dL (0.2-1.0); URINE WBC 12 /uL (0-25.8)
[2021-06-12] MEDS ORDERED: morphine CARPU-JECT 2 MG/1 ML DISP.SYRIN IVPUSH ONE (22:13)
[2021-06-12] MEDS ORDERED: HYDROmorphone HCL CARPU-JECT 2 MG/1 ML DISP.SYRIN IVPUSH ONE (23:15)
[2021-06-12] MEDS ORDERED: HYDROmorphone HCl 2 MG/ML VIAL ONE (23:35)
[2021-06-12] MEDS ORDERED: morphine CARPU-JECT 2 MG/1 ML DISP.SYRIN IVPUSH PRN (23:36)
[2021-06-12] MEDS ORDERED: ACETAMINOPHEN 1000 MG/100 ML BAG IVPB PRN (23:36)
[2021-06-12] MEDS ORDERED: SODIUM CHLORIDE 1,000 ML IV SCH (23:45)
[2021-06-12] MEDS ORDERED: KETOROLAC TROMETHAMINE 15 MG/ML VIAL IVPUSH PRN (23:49)
[2021-06-13] MEDS ORDERED: ONDANSETRON 4 MG/2 ML VIAL ONE (00:43)
[2021-06-13] MEDS ORDERED: ONDANSETRON 4 MG/2 ML VIAL IVPUSH ONE (00:43)
[2021-06-13] MEDS: SODIUM CHLORIDE 1,000 ML IV SCH ×3 (00:51→23:11)
[2021-06-13] MEDS ORDERED: ONDANSETRON 4 MG/2 ML VIAL IVPUSH PRN (03:07)
[2021-06-13 03:46] VITALS: BMI 37.8
[2021-06-13 08:59] LABS: EPI CELLS 9 /uL (0-25.1); HYALINE CASTS 1 /uL (0-3.1); PH,URINE 7.5 (5.0-8.0); URINE APPEARANCE CLEAR; URINE BILIRUBIN NEGATIVE (NEGATIVE); URINE COLOR DK YELLOW; URINE GLUCOSE (UA) NEGATIVE (NEGATIVE); URINE KETONE NEGATIVE (NEGATIVE); URINE LEUK ESTERASE TRACE (NEGATIVE); URINE NITRITE POSITIVE (NEGATIVE); URINE PROTEIN NEGATIVE (NEGATIVE); URINE RBC 34 /uL (0-23.9); URINE WBC 29 /uL (0-25.8)
[2021-06-13 09:01] LABS: BASO % 0.5 % (0-2.0); EOS % 0.4 % (0-4.5); HEMATOCRIT 37.2 % (32.4-45.2); HEMOGLOBIN 12.9 GM/dL (10.7-15.3); LYMPH % 22.1 % (8-40); MCH 29.5 pg (25.7-33.7); MCHC 34.7 g/dl (32.0-36.0); MEAN PLT VOLUME 7.2 fl (7.5-11.1); MONO % 9.9 % (3.8-10.2); NEUT % 67.1 % (42.8-82.8); PLATELET COUNT 377 10^3/uL (134-434); RBC 4.37 M/mm3 (3.60-5.2); RDW 14.5 % (11.6-15.6); WHITE BLOOD COUNT 10.8 K/mm3 (4.0-10.0)
[2021-06-13] MEDS: TAMSULOSIN HCL 0.4 MG CAP PO SCH (09:05)
[2021-06-13 09:07] LABS: INR 1.21 (0.83-1.09)
[2021-06-13 09:33] LABS: ALBUMIN 3.4 g/dl (3.4-5.0); BLOOD UREA NITROGEN 9.9 mg/dL (7-18); CALCIUM 8.1 mg/dL (8.5-10.1)
[2021-06-13 09:35] LABS: PHOSPHOROUS 3.7 mg/dL (2.5-4.9)
[2021-06-13 09:36] LABS: CREATININE 0.5 mg/dL (0.55-1.3); TOT PROT 6.4 g/dl (6.4-8.2)
[2021-06-13 09:39] LABS: BILIRUBIN,TOTAL 0.6 mg/dL (0.2-1)
[2021-06-13] MEDS ORDERED: CEFTRIAXONE 1 GM in DEXTROSE 5%-WATER - 50 ML IVPB SCH (11:30)
[2021-06-13] MEDS ORDERED: cefTRIAXone SODIUM 1 GM VIAL ONE (12:32)
[2021-06-13] MEDS ORDERED: DEXTROSE 5%-WATER - 50 ML IVPB ONE (12:32)
[2021-06-14] MEDS ORDERED: MIDAZOLAM HCL 2 MG/2 ML SINGLE DOSE VIAL ONE ×2 (08:14→09:07)
[2021-06-14] MEDS ORDERED: SUCCINYLCHOLINE CHLORIDE 200 MG/10 ML SYRINGE ONE (08:23)
[2021-06-14] MEDS ORDERED: PROPOFOL 20 ML ONE ×4 (08:23→08:54)
[2021-06-14] MEDS ORDERED: ceFAZolin SODIUM 1 GM VIAL IVPB ONE (08:35)
[2021-06-14] MEDS ORDERED: KETOROLAC TROMETHAMINE 15 MG/ML VIAL IVPUSH PRN (09:05)
[2021-06-14] MEDS ORDERED: ONDANSETRON 4 MG/2 ML VIAL IVPUSH PRN ×2 (09:05→09:13)
[2021-06-14] MEDS ORDERED: LACTATED RINGERS SOLUTION 1,000 ML IV SCH (09:15)
[2021-06-14] MEDS: SODIUM CHLORIDE 1,000 ML IV SCH ×2 (09:54→10:25)
[2021-06-14] MEDS: TAMSULOSIN HCL 0.4 MG CAP PO SCH (11:05)
[2021-06-14] MEDS: BETHANECHOL CHLORIDE 25 MG TABLET PO SCH ×2 (14:56→21:37)
[2021-06-14] MEDS ORDERED: cefTRIAXone SODIUM 1 GM VIAL ONE (16:23)
[2021-06-14] MEDS ORDERED: DEXTROSE 5%-WATER - 50 ML IVPB ONE (16:23)
[2021-06-14] MEDS: CEFTRIAXONE 1 GM in DEXTROSE 5%-WATER - 50 ML IVPB SCH (16:44)
[2021-06-14 16:50] LABS: HEMATOCRIT 41.6 % (32.4-45.2); MCH 28.9 pg (25.7-33.7); MCHC 33.6 g/dl (32.0-36.0); MEAN CELL VOLUME 85.9 fl (80-96); MEAN PLT VOLUME 6.8 fl (7.5-11.1); PLATELET COUNT 418 10^3/uL (134-434); RBC 4.85 M/mm3 (3.60-5.2); RDW 14.3 % (11.6-15.6); WHITE BLOOD COUNT 9.7 K/mm3 (4.0-10.0)
[2021-06-14 17:11] LABS: BLOOD UREA NITROGEN 11.3 mg/dL (7-18)
[2021-06-14 17:14] LABS: CREATININE 0.8 mg/dL (0.55-1.3)
[2021-06-14 17:28] LABS: CALCIUM 9.5 mg/dL (8.5-10.1)
[2021-06-14] MEDS: ACETAMINOPHEN 1000 MG/100 ML BAG IVPB PRN (18:50)
[2021-06-15] MEDS: ACETAMINOPHEN 1000 MG/100 ML BAG IVPB PRN (01:41)
[2021-06-15] MEDS: SODIUM CHLORIDE 1,000 ML IV SCH (04:21)
[2021-06-15] MEDS: BETHANECHOL CHLORIDE 25 MG TABLET PO SCH ×2 (06:06→14:20)
[2021-06-15] MEDS ORDERED: TAMSULOSIN HCL 0.4 MG CAP PO SCH (08:30)
[2021-06-15] MEDS ORDERED: cefTRIAXone SODIUM 1 GM VIAL ONE (11:01)
[2021-06-15] MEDS ORDERED: DEXTROSE 5%-WATER - 50 ML IVPB ONE (11:01)
[2021-06-15] MEDS: CEFTRIAXONE 1 GM in DEXTROSE 5%-WATER - 50 ML IVPB SCH (11:34)
[2021-06-15 14:12] VITALS: BP 139/69; PULSE 79; TEMP 99.2
[2021-06-20 20:04] LABS: CA OXALATE MONOHYDR. 30%; SIZE 1X1 MM; WEIGHT 5 MG
== END 2021-06-15 14:58 | disposition home or self-care (01) | DRG 661 ==
LOC: JER 19:49 → JERBED 23:20 → OBSVTOIN 23:24 → J8W 06-13 02:12
PROVIDERS: ADMIT Hospitalist; ATTEND Internal Medicine
PROC: 0T778DZ Dilation of Left Ureter with Intraluminal Device, Via Natural or Artificial Opening Endoscopic (ICD-10-PCS; principal; 2021-06-14 07:55)
PROC: BT1FZZZ Fluoroscopy of Left Kidney, Ureter and Bladder (ICD-10-PCS; 2021-06-14 07:55)
DX: N13.2 Hydronephrosis with renal and ureteral calculous obstruction (principal); E66.9 Obesity, unspecified; Z68.37 Body mass index [BMI] 37.0-37.9, adult
CPT/HCPCS: 36415; 74176-TC; 76000-TC-FY; 76775-TC; 76856-TC; 80048; 80053; 81003; 82360; 83690; 83735; 84100; 84703; 85025; 85027; 85610; 86850; 86900; 86901; 87086; 93005; 93010; 94010; 94760; 99285-25; C9803-CS; G0378; U0003; U0005

== ENCOUNTER 2022-10-11 09:57 | Emergency (ER) | payer OTHER ==
[2022-10-11 10:04] VITALS: BP 137/82; PULSE 82; RESP 18; TEMP 98.5; BMI 36.6
[2022-10-11] MEDS ORDERED: ACETAMINOPHEN 500 MG TABLET (FP) PO ONE (11:01)
[2022-10-11] MEDS ORDERED: KETOROLAC TROMETHAMINE 30 MG/1 ML VIAL IM ONE (11:01)
[2022-10-11] MEDS ORDERED: ACETAMINOPHEN 500 MG TABLET (FP) ONE (11:03)
[2022-10-11] MEDS ORDERED: KETOROLAC TROMETHAMINE 30 MG/1 ML VIAL ONE (11:03)
== END 2022-10-11 11:16 | disposition home or self-care (01) ==
LOC: JER 09:57 → JERFT 09:57
PROC: 3E0233Z Introduction of Anti-inflammatory into Muscle, Percutaneous Approach (ICD-10-PCS; principal; 2022-10-11)
DX: R51.9 Headache, unspecified (principal); R09.81 Nasal congestion; M79.10 Myalgia, unspecified site; J06.9 Acute upper respiratory infection, unspecified; Z20.822 Contact with and (suspected) exposure to COVID-19
CPT/HCPCS: 0241U-QW; 87651; 99284-25

== ENCOUNTER 2023-01-15 14:15 | Emergency (ER) | payer OTHER ==
[2023-01-15] MEDS ORDERED: FAMOTIDINE 20 MG/50 ML IVPB 20 MG/50 ML MG IVPB ONE ×2 (14:20→16:30)
[2023-01-15] MEDS ORDERED: ACETAMINOPHEN 1000 MG/100 ML BAG IVPB ONE (14:20)
[2023-01-15] MEDS ORDERED: SODIUM CHLORIDE 1,000 ML IV STA (14:20)
[2023-01-15] MEDS ORDERED: ONDANSETRON 4 MG/2 ML VIAL IVPUSH ONE ×2 (14:21→21:06)
[2023-01-15 14:24] VITALS: RESP 18; BMI 33.3
[2023-01-15] MEDS ORDERED: ONDANSETRON 4 MG/2 ML VIAL ONE ×2 (14:42→21:17)
[2023-01-15] MEDS ORDERED: ACETAMINOPHEN INJECTION 100 ML IVPB ONE (14:42)
[2023-01-15 15:07] LABS: BASO % 0.4 % (0-2.0); EOS % 0.2 % (0-4.5); HEMATOCRIT 43.8 % (32.4-45.2); HEMOGLOBIN 14.7 GM/dL (10.7-15.3); LYMPH % 9.5 % (8-40); MCH 28.9 pg (25.7-33.7); MCHC 33.5 g/dl (32.0-36.0); MEAN CELL VOLUME 86.1 fl (80-96); MEAN PLT VOLUME 6.9 fl (7.5-11.1); MONO % 3.5 % (3.8-10.2); NEUT % 86.4 % (42.8-82.8); PLATELET COUNT 422 10^3/uL (134-434); RBC 5.08 M/mm3 (3.60-5.2); RDW 14.1 % (11.6-15.6); WHITE BLOOD COUNT 11.9 K/mm3 (4.0-10.0)
[2023-01-15 15:31] LABS: POTASSIUM 3.9 mmol/L (3.5-5.1)
[2023-01-15 15:33] LABS: MAGNESIUM 1.9 mg/dL (1.8-2.4)
[2023-01-15 15:34] LABS: CALCIUM 8.6 mg/dL (8.5-10.1)
[2023-01-15 15:35] LABS: ALBUMIN 3.7 g/dl (3.4-5.0); BLOOD UREA NITROGEN 10.2 mg/dL (7-18)
[2023-01-15 15:37] LABS: BILIRUBIN,DIRECT 0.2 mg/dL (0.0-0.2); CREATININE 0.6 mg/dL (0.55-1.3); PHOSPHOROUS 2.9 mg/dL (2.5-4.9)
[2023-01-15 15:38] LABS: TOT PROT 7.2 g/dl (6.4-8.2)
[2023-01-15 15:39] LABS: BILIRUBIN,TOTAL 0.8 mg/dL (0.2-1)
[2023-01-15] MEDS ORDERED: SODIUM CHLORIDE 0.9% 500 ML INFUS.BAG IV ONE (16:06)
[2023-01-15 16:43] LABS: EPI CELLS 10 /uL (0-25.1); HYALINE CASTS 0 /uL (0-3.1); URINE APPEARANCE CLOUDY; URINE BACTERIA 33 /uL (0-1359); URINE BILIRUBIN NEGATIVE (NEGATIVE); URINE COLOR YELLOW; URINE GLUCOSE (UA) NEGATIVE (NEGATIVE); URINE KETONE NEGATIVE (NEGATIVE); URINE LEUK ESTERASE TRACE (NEGATIVE); URINE NITRITE NEGATIVE (NEGATIVE); URINE PROTEIN TRACE (NEGATIVE); URINE RBC 4927 /uL (0-23.9); URINE UROBILINOGEN 0.2 mg/dL (0.2-1.0); URINE WBC 55 /uL (0-25.8)
[2023-01-15 16:53] LABS: HCG,QUALITATIVE URINE Negative
[2023-01-15 16:56] LABS: ACTIVATED PTT 30.4 SECONDS (25.2-36.5); INR 1.17 (0.83-1.09); PROTHROMBIN TIME (PATIENT) 13.6 SEC (9.7-13.0)
[2023-01-15] MEDS ORDERED: KETOROLAC TROMETHAMINE 15 MG/ML VIAL IVPUSH ONE (21:06)
[2023-01-15 21:11] VITALS: BP 111/68; PULSE 80; TEMP 99.3
[2023-01-15] MEDS ORDERED: KETOROLAC TROMETHAMINE 15 MG/ML VIAL ONE (21:16)
[2023-01-15] MEDS ORDERED: ACETAMINOPHEN 500 MG TABLET (FP) PO ONE (21:20)
[2023-01-15] MEDS ORDERED: ACETAMINOPHEN 325 MG TABLET (FP) ONE (21:21)
== END 2023-01-15 21:32 | disposition home or self-care (01) ==
LOC: JER 14:15
PROC: 3E033GC Introduction of Other Therapeutic Substance into Peripheral Vein, Percutaneous Approach (ICD-10-PCS; principal; 2023-01-15)
PROC: 3E033NZ Introduction of Analgesics, Hypnotics, Sedatives into Peripheral Vein, Percutaneous Approach (ICD-10-PCS; 2023-01-15)
PROC: 3E033GC Introduction of Other Therapeutic Substance into Peripheral Vein, Percutaneous Approach (ICD-10-PCS; 2023-01-15)
PROC: 3E033GC Introduction of Other Therapeutic Substance into Peripheral Vein, Percutaneous Approach (ICD-10-PCS; 2023-01-15)
PROC: 3E0337Z Introduction of Electrolytic and Water Balance Substance into Peripheral Vein, Percutaneous Approach (ICD-10-PCS; 2023-01-15)
DX: R11.2 Nausea with vomiting, unspecified (principal); R19.7 Diarrhea, unspecified; R10.32 Left lower quadrant pain; E66.9 Obesity, unspecified; R00.0 Tachycardia, unspecified; R50.9 Fever, unspecified; Z20.822 Contact with and (suspected) exposure to COVID-19
CPT/HCPCS: 0241U-QW; 36415; 74177-TC; 80053; 81003; 82248; 82550; 83605; 83690; 83735; 84100; 84484; 84703; 85025; 85610; 85730; 87086; 93005; 93010; 99285-25; Q9967

== ENCOUNTER 2024-01-18 02:49 | Observation (INO) | payer OTHER ==
[2024-01-18] MEDS ORDERED: morphine SULFATE 4 MG/ML VIAL ONE ×2 (03:27→04:55)
[2024-01-18] MEDS ORDERED: ONDANSETRON 4 MG/2 ML VIAL ONE ×2 (03:28→07:44)
[2024-01-18] MEDS: morphine CARPU-JECT 4 MG/1 ML DISP.SYRIN IVPUSH ONE ×2 (03:54→05:13)
[2024-01-18] MEDS: ONDANSETRON 4 MG/2 ML VIAL IVPUSH ONE (03:55)
[2024-01-18 04:12] LABS: BASO % 0.3 % (0-2.0); HEMATOCRIT 46.5 % (32.4-45.2); HEMOGLOBIN 15.5 GM/dL (10.7-15.3); LYMPH % 8.3 % (8-40); MCH 27.9 pg (25.7-33.7); MCHC 33.3 g/dl (32.0-36.0); MEAN CELL VOLUME 83.8 fl (80-96); MEAN PLT VOLUME 7.4 fl (7.5-11.1); MONO % 4.3 % (3.8-10.2); NEUT % 87.1 % (42.8-82.8); PLATELET COUNT 559 10^3/uL (134-434); RBC 5.55 M/mm3 (3.60-5.2); RDW 14.4 % (11.6-15.6); WHITE BLOOD COUNT 16.1 K/mm3 (4.0-10.0)
[2024-01-18 04:24] LABS: POTASSIUM 3.9 mmol/L (3.5-5.1)
[2024-01-18 04:26] LABS: CALCIUM 9.9 mg/dL (8.5-10.1)
[2024-01-18 04:27] LABS: ALBUMIN 4.5 g/dl (3.4-5.0); BLOOD UREA NITROGEN 6.2 mg/dL (7-18); MAGNESIUM 1.8 mg/dL (1.8-2.4)
[2024-01-18 04:30] LABS: CREATININE 0.8 mg/dL (0.55-1.3)
[2024-01-18 04:31] LABS: BILIRUBIN,TOTAL 0.6 mg/dL (0.2-1)
[2024-01-18 04:32] LABS: INR 1.02 (0.83-1.09); PROTHROMBIN TIME (PATIENT) 11.7 SEC (9.7-13.0); TOT PROT 8.8 g/dl (6.4-8.2)
[2024-01-18 04:35] LABS: ACTIVATED PTT 30.4 SECONDS (25.2-36.5)
[2024-01-18 04:50] LABS: EPI CELLS 16 /uL (0-25.1); HYALINE CASTS 0 /uL (0-3.1); URINE APPEARANCE TURBID; URINE BACTERIA >9,000 /uL (0-1359); URINE BILIRUBIN NEGATIVE (NEGATIVE); URINE COLOR YELLOW; URINE GLUCOSE (UA) TRACE (NEGATIVE); URINE KETONE 2+ (NEGATIVE); URINE LEUK ESTERASE NEGATIVE (NEGATIVE); URINE NITRITE NEGATIVE (NEGATIVE); URINE PROTEIN 3+ (NEGATIVE); URINE RBC 31 /uL (0-23.9); URINE UROBILINOGEN 0.2 mg/dL (0.2-1.0); URINE WBC 46 /uL (0-25.8)
[2024-01-18] MEDS ORDERED: CEFTRIAXONE 1 G/50 ML PREMIX 50 ML IVPB ONE (06:24)
[2024-01-18] MEDS: CEFTRIAXONE 1,000 MG in DEXTROSE 5%-WATER - 50 ML IVPB ONE (06:29)
[2024-01-18] MEDS ORDERED: ACETAMINOPHEN INJECTION 100 ML ONE (06:33)
[2024-01-18] MEDS: ACETAMINOPHEN 1000 MG/100 ML BAG IVPB ONE (06:34)
[2024-01-18] MEDS ORDERED: KETOROLAC TROMETHAMINE 30 MG/1 ML VIAL ONE (07:43)
[2024-01-18] MEDS: KETOROLAC TROMETHAMINE 30 MG/1 ML VIAL IVPUSH ONE (07:49)
[2024-01-18] MEDS: ONDANSETRON 4 MG/2 ML VIAL IVPB ONE (07:50)
[2024-01-18] MEDS ORDERED: METOCLOPRAMIDE HCL INJECTION 10 MG/2 ML VIAL ONE (09:04)
[2024-01-18] MEDS: METOCLOPRAMIDE HCL INJECTION 10 MG/2 ML VIAL IVPB ONE (09:18)
[2024-01-18] MEDS: SODIUM CHLORIDE 0.9% 1000 ML INFUS.BAG IV ONE (09:30)
[2024-01-18] MEDS ORDERED: MORPHINE SULFATE 2 MG/ML SYRINGE IVPUSH PRN (10:33)
[2024-01-18] MEDS ORDERED: NAPROXEN 500 MG TABLET ONE (11:27)
[2024-01-18] MEDS: NAPROXEN 500 MG TABLET PO SCH (11:44)
[2024-01-18] MEDS: LACTATED RINGERS SOLUTION 1,000 ML/1,000 ML INFUS.BAG IV SCH (11:44)
[2024-01-18] MEDS: HYDROmorphone HCL CARPU-JECT 2 MG/1 ML DISP.SYRIN IVPUSH ONE (14:05)
[2024-01-18 14:43] VITALS: BMI 37.2
[2024-01-18] MEDS: HYDROmorphone HCl 2 MG/ML VIAL IVPUSH ONE (16:22)
[2024-01-18] MEDS: ACETAMINOPHEN 500 MG TABLET (FP) PO PRN (16:32)
[2024-01-18] MEDS: ONDANSETRON 4 MG/2 ML VIAL IVPUSH PRN (18:38)
[2024-01-18] MEDS: SENNOSIDES 8.6MG TABLET (FP) PO PRN (18:38)
[2024-01-18] MEDS: HEPARIN NA (PORCINE) 5,000 UNITS/ML 1ML VIAL SQ SCH (21:40)
[2024-01-19] MEDS ORDERED: IBUPROFEN 800 MG/8 ML IJ IVPB SCH (08:15)
[2024-01-19] MEDS: IBUPROFEN 800 MG/8 ML IJ IVPB PRN ×2 (08:31→15:44)
[2024-01-19] MEDS: SODIUM CHLORIDE 1,000 ML IV SCH ×2 (08:31→11:50)
[2024-01-19] MEDS: CEFTRIAXONE 1 G/50 ML PREMIX 50 ML IVPB SCH (09:42)
[2024-01-19] MEDS: INDOMETHACIN 50 MG CAPSULE PO SCH (09:44)
[2024-01-19] MEDS: ACETAMINOPHEN 500 MG TABLET (FP) PO SCH (13:43)
[2024-01-20 19:33] LABS: BASO % 0.2 % (0-2.0); EOS % 0.3 % (0-4.5); HEMATOCRIT 42.5 % (32.4-45.2); HEMOGLOBIN 13.6 GM/dL (10.7-15.3); LYMPH % 17.6 % (8-40); MCH 26.9 pg (25.7-33.7); MEAN CELL VOLUME 83.9 fl (80-96); MEAN PLT VOLUME 7.1 fl (7.5-11.1); MONO % 6.9 % (3.8-10.2); PLATELET COUNT 458 10^3/uL (134-434); RBC 5.06 M/mm3 (3.60-5.2); RDW 14.1 % (11.6-15.6); WHITE BLOOD COUNT 14.3 K/mm3 (4.0-10.0)
[2024-01-20 19:49] LABS: POTASSIUM 4.1 mmol/L (3.5-5.1)
[2024-01-20 19:50] LABS: CALCIUM 9.1 mg/dL (8.5-10.1)
[2024-01-20 19:51] LABS: BLOOD UREA NITROGEN 6.2 mg/dL (7-18); MAGNESIUM 1.9 mg/dL (1.8-2.4)
[2024-01-20 19:54] LABS: CREATININE 0.5 mg/dL (0.55-1.3)
[2024-01-20 19:55] LABS: BILIRUBIN,TOTAL 0.5 mg/dL (0.2-1); TOT PROT 7.1 g/dl (6.4-8.2)
[2024-01-20 20:28] LABS: ALBUMIN 3.6 g/dl (3.4-5.0)
[2024-01-21 09:03] LABS: BASO % 0.3 % (0-2.0); EOS % 0.8 % (0-4.5); HEMATOCRIT 40.7 % (32.4-45.2); HEMOGLOBIN 13.3 GM/dL (10.7-15.3); LYMPH % 18.5 % (8-40); MCH 27.5 pg (25.7-33.7); MCHC 32.7 g/dl (32.0-36.0); MEAN PLT VOLUME 7.3 fl (7.5-11.1); MONO % 8.2 % (3.8-10.2); NEUT % 72.2 % (42.8-82.8); PLATELET COUNT 439 10^3/uL (134-434); RBC 4.85 M/mm3 (3.60-5.2); RDW 14.2 % (11.6-15.6); WHITE BLOOD COUNT 12.6 K/mm3 (4.0-10.0)
[2024-01-21 09:24] LABS: POTASSIUM 3.8 mmol/L (3.5-5.1)
[2024-01-21 09:34] LABS: CALCIUM 8.7 mg/dL (8.5-10.1)
[2024-01-21 09:35] LABS: ALBUMIN 3.6 g/dl (3.4-5.0)
[2024-01-21 09:39] LABS: BILIRUBIN,TOTAL 0.6 mg/dL (0.2-1); CREATININE 0.5 mg/dL (0.55-1.3); TOT PROT 6.7 g/dl (6.4-8.2)
[2024-01-21 10:04] LABS: BLOOD UREA NITROGEN 6.5 mg/dL (7-18)
[2024-01-21] MEDS: morphine SULFATE 4 MG/ML VIAL IVPUSH PRN (15:53)
[2024-01-21] MEDS: POLYETHYLENE GLYCOL (HEALTHYLAX) 3350 17 GM PACKET PO SCH (15:54)
[2024-01-22 05:08] VITALS: RESP 18
[2024-01-22 10:14] VITALS: BP 119/58; PULSE 72; TEMP 98.4
== END 2024-01-22 13:56 | disposition home or self-care (01) ==
LOC: JER 02:49 → JERBED 09:00 → J7W 13:37
PROVIDERS: ADMIT Internal Medicine; ATTEND Internal Medicine
PROC: 3E03329 Introduction of Other Anti-infective into Peripheral Vein, Percutaneous Approach (ICD-10-PCS; principal; 2024-01-18)
PROC: 3E033NZ Introduction of Analgesics, Hypnotics, Sedatives into Peripheral Vein, Percutaneous Approach (ICD-10-PCS; 2024-01-18)
PROC: 3E033GC Introduction of Other Therapeutic Substance into Peripheral Vein, Percutaneous Approach (ICD-10-PCS; 2024-01-18)
PROC: 3E023GC Introduction of Other Therapeutic Substance into Muscle, Percutaneous Approach (ICD-10-PCS; 2024-01-18)
PROC: 3E0333Z Introduction of Anti-inflammatory into Peripheral Vein, Percutaneous Approach (ICD-10-PCS; 2024-01-18)
PROC: 3E0337Z Introduction of Electrolytic and Water Balance Substance into Peripheral Vein, Percutaneous Approach (ICD-10-PCS; 2024-01-18)
DX: N39.0 Urinary tract infection, site not specified (principal); D25.9 Leiomyoma of uterus, unspecified; R10.2 Pelvic and perineal pain; Z88.8 Allergy status to other drugs, medicaments and biological substances; Z98.890 Other specified postprocedural states; R11.2 Nausea with vomiting, unspecified; Z87.891 Personal history of nicotine dependence
CPT/HCPCS: 36415; 74174-TC; 76830-TC; 76856-TC; 80053; 81003; 83735; 84703; 85025; 85610; 85730; 86850; 86900; 86901; 99284-25; G0378; J0131; J1644; Q9967